=== PATIENT | female | born 1955 | race Caucasian/White ===

== ENCOUNTER 2018-05-29 16:26 | Emergency (ER) | payer MEDICARE, OTHER ==
--- NOTE | 2018-05-29 17:58 | ED Physician Documentation ---
PD HPI ABD PAIN - Stated complaint Stated Complaint: ABD PX - Chief complaint Chief Complaint: General - History obtained from History obtained from: Patient - History of Present Illness Timing - onset: Yesterday Timing - duration: Days (2) Timing - details: Gradual onset, Still present, Waxing and waning Quality: Cramping, Aching, Pain Location: All over / everywhere Radiation: No: Chest, Lower back Improved by: No: Eating Worsened by: Eating, Palpation. No: Moving Associated symptoms: Nausea, Diarrhea (loose stools for the past 2-3 days), Dizzy, Loss of appetite. No: Fever, Vomiting, Constipation, Melena, Hematochezia, Chest pain, Near syncope / syncope Similar symptoms before: Has not had sx before Recently seen: Clinic (She had had increased doses of her psychiatric medicines from her psychiatrist. She was to increase her citalopram I believe it was from 40-60 mg 3 weeks ago but there is been difficulty with the pharmacy dispensing i t and says she just increase that a week ago. She also increased her bupropion from 300-450 mg a week ago as well. She has felt otherwise okay until a couple of days ago when she has had the nausea, lightheadedness, abdominal cramps, muscle cramps and intermittent tingling in arms and legs. She called her psychiatrist who referred her to the ER for further evaluation. Concern was for the serotonin effect of both medicines.) Review of Systems Constitutional: reports: Myalgias, Fatigue. denies: Fever, Chills Nose: denies: Rhinorrhea / runny nose, Congestion Throat: denies: Sore throat Cardiac: denies: Chest pain / pressure, Palpitations Respiratory: denies: Dyspnea, Cough GI: reports: Nausea, Diarrhea (relatively loose BMs for her, with typical constipation related to chronic pain meds.). denies: Abdominal Pain, Vomiting, Constipation, Hematemesis, Bloody / black stool : denies: Dysuria, Frequency Musculoskeletal: reports: Back pain (chronic). denies: Neck pain Neurologic: reports: Generalized weakness, Confused. denies: Focal weakness, Numbness, Near syncope, Altered mental status Psychiatric: reports: Depressed. denies: Suicidal Immunocompromised: denies: Immunocompromised PD PAST MEDICAL HISTORY - Past Medical History Cardiovascular: None, Hypertension Respiratory: None Psych: Depression, Anxiety - Past Surgical History Past Surgical History: Yes - Present Medications Home Medications: Ambulatory Orders Medication Instructions Recorded Confirmed Docusate Sodium 100 mg PO TID PRN 12/10/15 12/10/15 Eletriptan HBr [Relpax] 40 mg PO Q2HR PRN 12/10/15 12/10/15 Estradiol [Estrace] 1 mg [id number] BIDWM 12/10/15 12/10/15 Gabapentin 600 mg PO TID 12/10/15 12/10/15 HYDROmorphone [Dilaudid] 4 mg PO BID PRN 12/10/15 12/10/15 Levothyroxine [Synthroid] 88 mcg PO DAILY 12/10/15 12/10/15 Metoprolol Tartrate 12.5 mg PO DAILY PM 12/10/15 12/10/15 Morphine Sulfate [Ms Contin] 45 mg PO BID 12/10/15 12/10/15 Olopatadine HCl 1 drop EACHEYE BID 12/10/15 12/10/15 Omeprazole 40 mg PO DAILY 12/10/15 12/10/15 Hyoscyamine Sulfate [Symax-Sr] 1 tab PO BID PRN 12/11/15 12/11/15 Spironolactone 50 mg PO DAILY 12/11/15 12/11/15 raNITIdine HCl [Ranitidine HCl] 300 mg PO DAILY 12/11/15 12/11/15 Apixaban [Eliquis] 1 tab PO DAILY 05/29/18 05/29/18 Bumetanide [Bumex] 1 tab PO DAILY 05/29/18 05/29/18 Metoprolol Tartrate 25 mg PO DAILY 05/29/18 05/29/18 Ondansetron HCl [Zofran] 4 mg PO Q6H PRN #12 tablet 05/29/18 buPROPion [Wellbutrin Xl] 3 tab PO DAILY 05/29/18 05/29/18 - Allergies Allergies/Adverse Reactions: Allergies Allergy/AdvReac Type Severity Reaction Status Date / Time codeine Allergy Itching Verified 05/29/18 18:27 PD ED PE NORMAL - Vitals Vital signs reviewed: Yes - General General: Alert and oriented X 3, Well developed/nourished, Other (somewhat anxious. ) - HEENT HEENT: Atraumatic, PERRL (mild nystagmus noted. ), Pharynx benign - Neck Neck: Supple, no meningeal sign, No adenopathy, No JVD - Cardiac Cardiac: RRR, No murmur - Respiratory Respiratory: Clear bilaterally - Abdomen Abdomen: Soft, Non distended, Other (tender generally without guarding nor percussion tenderness. ). No: Normal bowel sounds (increased diffusely) - Female Female : Deferred - Rectal Rectal: Deferred - Derm Derm: Normal color, Warm and dry - Extremities Extremities: No deformity, No tenderness to palpate, Normal ROM s pain - Neuro Neuro: Alert and oriented X 3, No motor deficit, Normal speech Results - Vitals Vitals: Vital Signs - 24 hr 05/29/18 16:36 Temperature 36.6 C Heart Rate 84 Respiratory 20 Rate Blood Pressure 127/63 O2 Saturation 98 Oxygen O2 Source Room air - Rads (name of study) abd CT Radiology: Prelim report reviewed (prior CCY with dilated CBD at 12 mm. No noted stones. ) PD MEDICAL DECISION MAKING - ED course Complexity details: reviewed results, re-evaluated patient (feeling much better with IV fluids and meds (Zofran and Lorazepam), to help with nausea and presumed side effect of the meds recently increased. ), considered differential (She has a little bit of nausea and some slight confusion. She is having muscle spasming. She is having occasional numbness in her extremities. She is having abdominal cramping. She has not noticed any fevers. Her symptoms might relate to increase serotonin since she did have the increased doses of 2 medications that could both cause that. However she does not have any vital sign lability nor fever and she is improved with IV fluids and some antiemetics. I did check blood tests and a CT scan to look for other causes of her stomach cramping. No obvious cause is found. She is improved here and so I think we can discharge her at this time and feels safe with that. She is to hold both medicines for 2- 3 days and then resume at the lower prior doses. She is to contact her psychiatrist the next day or 2 to verify this plan. She can return if other symptoms.), d/w patient - Sepsis Event Vital Signs: Vital Signs - 24 hr 05/29/18 16:36 Temperature 36.6 C Heart Rate 84 Respiratory 20 Rate Blood Pressure 127/63 O2 Saturation 98 Oxygen O2 Source Room air Departure - Departure Disposition: 01 Home, Self Care Clinical Impression: Abdominal cramping, Muscle cramps, Medication side effect, Serotonergic syndrome Condition: Stable Record reviewed to determine appropriate education?: Yes Follow-Up: Luther Briscoe MD [Primary Care Provider] - Prescriptions: Ondansetron HCl [Zofran] 4 mg PO Q6H PRN #12 tablet PRN Reason: Nausea / Vomiting Comments: Drink lots of fluids and stay well-hydrated. Hold the 2 medications that you recently increased for 4 days and then resume them at the prior lower dose (for example the bupropion at the 300 mg rather than the 450). Continue your other usual medications. Contact your psychiatrist in the next couple of days to let her know how you are doing. Ondansatron if needed for nausea. Tylenol if needed for pains. Discharge Date/Time: 05/29/18 22:00
[2018-05-29 18:01] LABS: BASOPHILS # (AUTO) 0.1 10^3/uL (0.0-0.1); BASOPHILS % (AUTO) 0.7 %; EOSINOPHILS # (AUTO) 0.3 10^3/uL (0.0-0.7); EOSINOPHILS % (AUTO) 2.7 %; HGB - HEMOGLOBIN 12.6 g/dL (12.0-16.0); LYMPHOCYTES # (AUTO) 2.1 10^3/uL (1.5-3.5); LYMPHOCYTES % (AUTO) 20.1 %; MEAN CORPUSCULAR HEMOGLOBIN 28.4 pg (27.0-31.0); MEAN CORPUSCULAR HGB CONC 34.4 g/dL (32.0-36.0); MEAN CORPUSCULAR VOLUME 82.7 fL (81.0-99.0); MONOCYTES # (AUTO) 0.8 10^3/uL (0.0-1.0); MONOCYTES % (AUTO) 7.7 %; NEUTROPHILS # (AUTO) 7.1 10^3/uL (1.5-6.6); NEUTROPHILS % (AUTO) 68.8 %; PLT - PLATELET COUNT 268 10^3/uL (130-450); RED BLOOD COUNT 4.44 10^6/uL (4.20-5.40); RED CELL DISTRIBUTION WIDTH 15.1 % (12.0-15.0); WHITE BLOOD COUNT 10.3 x10^3/uL (4.8-10.8)
[2018-05-29 18:14] LABS: ALBUMIN/GLOBULIN RATIO 1.1 (1.0-2.2); BILIRUBIN,TOTAL 0.6 mg/dL (0.2-1.0); CALCIUM 8.4 mg/dL (8.5-10.3); CREATININE 1.1 mg/dL (0.4-1.0); TOTAL PROTEIN 7.8 g/dL (6.7-8.2)
[2018-05-29] MEDS ORDERED: SODIUM CHLORIDE 0.9% 1,000 ML IV ONE (18:23)
[2018-05-29] MEDS ORDERED: ONDANSETRON 4 MG/2 ML VIAL IVP STA (18:26)
[2018-05-29] MEDS ORDERED: LORazepam 2 MG/ML VIAL IVP STA (18:27)
[2018-05-29] MEDS ORDERED: IOPAMIDOL-300 100 ML VIAL ONE (18:32)
[2018-05-29 18:43] LABS: MAGNESIUM 2.1 mg/dL (1.7-2.8)
[2018-05-29 18:59] LABS: MUDS CUTOFF CONCENTRATIONS CUTOFF CONC BELOW:
[2018-05-29 19:01] LABS: BILIRUBIN,URINE NEGATIVE (NEGATIVE); GLUCOSE, URINE (UA) NEGATIVE (NEGATIVE); KETONES,URINE (UA) NEGATIVE (NEGATIVE); LEUKOCYTE ESTERASE, URINE NEGATIVE (NEGATIVE); NITRITE,URINE NEGATIVE (NEGATIVE); OCCULT BLOOD,URINE NEGATIVE (NEGATIVE); PROTEIN,URINE NEGATIVE (NEGATIVE); UROBILINOGEN,URINE 0.2 (NORMAL) E.U./dL (NORMAL)
[2018-05-29 19:03] LABS: CLARITY,URINE CLEAR (CLEAR)
[2018-05-29 19:11] LABS: AMPHETAMINE SCREEN,URINE NEGATIVE (NEGATIVE); BENZODIAZEPINES SCREEN, URINE NEGATIVE (NEGATIVE); COCAINE SCREEN URINE NEGATIVE (NEGATIVE); METHADONE SCREEN, URINE NEGATIVE (NEGATIVE); METHAMPHETAMINES SCREEN, URINE NEGATIVE (NEGATIVE); OPIATE SCREEN, URINE POSITIVE (NEGATIVE); OXYCODONE SCREEN, URINE NEGATIVE (NEGATIVE); PROPOXYPHENE SCREEN, URINE NEGATIVE (NEGATIVE); TRICYCLIC ANTIDEPRESSANT,URINE NEGATIVE (NEGATIVE)
[2018-05-29] MEDS ORDERED: IOPAMIDOL-300 100 ML VIAL IVP ONE (19:51)
--- NOTE | 2018-05-29 20:46 | CT Report ---
Reason: abd cramping and pain for few days Procedure Date: 05/29/2018 Accession Number: [id number] / [id number] Procedure: CT - Abdomen/Pelvis W/ CPT Code: FULL RESULT: EXAM: CT ABDOMEN AND PELVIS EXAM DATE: 05/29/2018 07:50 PM. CLINICAL HISTORY: Abdomen cramping and pain for few days. COMPARISONS: None. TECHNIQUE: Routine helical CT imaging was performed through the abdomen and pelvis. IV contrast: 100 cc of Isovue-300. Enteric contrast: No. Reconstructions: Coronal and sagittal. In accordance with CT protocol optimization, one or more of the following dose reduction techniques were utilized for this exam: automated exposure control, adjustment of mA and/or KV based on patient size, or use of iterative reconstructive technique. FINDINGS: Lung Bases: Unremarkable. Liver: Mild pneumobilia, otherwise unremarkable. Gallbladder/Bile Ducts: Cholecystectomy. Abnormal common bile duct diameter of 12 mm. Spleen: Normal. Pancreas: Normal. Adrenal Glands: Normal. Kidneys: Normal. No masses or hydronephrosis. Peritoneal Cavity/Bowel: Normal. No free fluid, free air or adenopathy. No masses or acute inflammatory process. Nonvisualized appendix. Pelvic Organs: Hysterectomy. Unremarkable bladder. Vasculature: No aneurysms or other significant abnormality. Bones: Mild S-shaped scoliosis. Chronic appearing compression fracture at L1. Degenerative disk disease at L2-L3 and L3-L4. Other: None. IMPRESSION: 1. Cholecystectomy with abnormal common bile duct diameter of 12 mm and mild pneumobilia. 2. Hysterectomy. 3. Mild S-shaped scoliosis with chronic appearing L1 compression fracture and degenerative disk disease at L2-L3 and L3-L4. RADIA
[2018-05-29] MEDS ORDERED: ONDANSETRON ODT 4 MG Prepack 2 TL PRN (21:47)
[2018-05-29 21:54] VITALS: BP 102/55
== END 2018-05-29 22:00 | disposition home or self-care (01) ==
LOC: ED 16:26
DX: R10.9 Unspecified abdominal pain (principal); R25.2 Cramp and spasm; T43.225A Adverse effect of selective serotonin reuptake inhibitors, initial encounter; I10 Essential (primary) hypertension
CPT/HCPCS: 36415; 74177; 80053; 81003; 82550; 83690; 83735; 85025; 96361; 96374; 99283; 99284; J2060; Q9967; 80306; 81001; 87086

== ENCOUNTER 2018-06-13 21:49 | Inpatient (IN) | payer MEDICARE, OTHER ==
[2018-06-13] MEDS ORDERED: SODIUM CHLORIDE 0.9% 1,000 ML IV ONE (22:03)
[2018-06-13] MEDS ORDERED: ONDANSETRON 4 MG/2 ML VIAL IVP STA (22:03)
--- NOTE | 2018-06-13 22:08 | ED Physician Documentation ---
History of Present Illness - Stated complaint Stated Complaint: N/D - Chief complaint Chief Complaint: Abd Pain - Additonal information Additional information: 62-year-old female presents the emergency department with increasing episodes of vomiting, diarrhea and lower abdominal pain which have progressively worsened over the past several days. The patient reports being unable to keep down any liquids or food since the symptoms started. The patient's had no relief with [id number] Imodium. The patient reports ongoing lower abdominal discomfort. No blood in the vomit or stools. No recent antibiotic usage or travel. No specific triggering factors. No relieving factors. Symptoms are described as severe Review of Systems Constitutional: reports: Fever, Chills, Fatigue Eyes: denies: Discharge Ears: denies: Ear pain Nose: denies: Congestion Throat: denies: Dental pain / toothache Cardiac: denies: Chest pain / pressure Respiratory: denies: Cough GI: reports: Abdominal Pain, Nausea, Vomiting, Diarrhea : denies: Dysuria Skin: denies: Rash Musculoskeletal: denies: Joint pain Neurologic: denies: Generalized weakness Immunocompromised: denies: Chemotherapy PD PAST MEDICAL HISTORY - Past Medical History Cardiovascular: None, Hypertension Respiratory: None Neuro: Migraines Endocrine/Autoimmune: HyPOthyroidism GI: GERD, 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 : None HEENT: None Psych: Depression, Anxiety Musculoskeletal: Chronic back pain, Other Derm: Herpes zoster - Past Surgical History Past Surgical History: Yes General: Cholecystectomy, Other Ortho: Arthroscopic surgery, Spine surgery, Other /INDUSTRIAL MAINTENANCE TECHNICIAN: section, Hysterectomy, Oophrectomy HEENT: Cataracts, Other - Present Medications Home Medications: Ambulatory Orders Medication Instructions Recorded Confirmed Docusate Sodium 100 mg PO TID PRN 12/10/15 12/10/15 Eletriptan HBr [Relpax] 40 mg PO Q2HR PRN 12/10/15 12/10/15 Estradiol [Estrace] 1 mg [id number] BIDWM 12/10/15 12/10/15 Gabapentin 600 mg PO TID 12/10/15 12/10/15 HYDROmorphone [Dilaudid] 4 mg PO BID PRN 12/10/15 12/10/15 Levothyroxine [Synthroid] 88 mcg PO DAILY 12/10/15 12/10/15 Metoprolol Tartrate 12.5 mg PO DAILY PM 12/10/15 12/10/15 Morphine Sulfate [Ms Contin] 45 mg PO BID 12/10/15 12/10/15 Olopatadine HCl 1 drop EACHEYE BID 12/10/15 12/10/15 Omeprazole 40 mg PO DAILY 12/10/15 12/10/15 Hyoscyamine Sulfate [Symax-Sr] 1 tab PO BID PRN 12/11/15 12/11/15 Spironolactone 50 mg PO DAILY 12/11/15 12/11/15 raNITIdine HCl [Ranitidine HCl] 300 mg PO DAILY 12/11/15 12/11/15 Apixaban [Eliquis] 1 tab PO DAILY 05/29/18 05/29/18 Bumetanide [Bumex] 1 tab PO DAILY 05/29/18 05/29/18 Metoprolol Tartrate 25 mg PO DAILY 05/29/18 05/29/18 Ondansetron HCl [Zofran] 4 mg PO Q6H PRN #12 tablet 05/29/18 buPROPion [Wellbutrin Xl] 3 tab PO DAILY 05/29/18 05/29/18 - Allergies Allergies/Adverse Reactions: Allergies Allergy/AdvReac Type Severity Reaction Status Date / Time codeine Allergy Itching Verified 05/29/18 18:27 - Social History Does the pt smoke?: No Smoking Status: Never smoker Does the pt drink ETOH?: No Does the pt have substance abuse?: No - Immunizations Immunizations are current?: Yes - POLST Patient has POLST: No Results - Vitals Vitals: Vital Signs - 24 hr 06/13/18 21:54 Temperature 37.4 C Heart Rate 88 Respiratory 18 Rate Blood Pressure 121/98 H O2 Saturation 94 Oxygen O2 Source Room air - Labs Labs: Laboratory Tests 06/13/18 06/13/18 22:10 22:10 WBC 14.8 H RBC 5.32 Hgb 15.0 Hct 44.1 MCV 82.9 MCH 28.1 MCHC 34.0 RDW 14.9 Plt Count 293 MPV 8.4 Neut # (Auto) 12.9 H Lymph # (Auto) 0.7 L [place] # (Auto) 1.2 H Eos # (Auto) 0.0 Baso # (Auto) 0.0 Absolute Nucleated RBC 0.01 Nucleated RBC % 0.1 Sodium 128 L Potassium 2.9 L Chloride 87 L Carbon Dioxide 23 Anion Gap 18.0 H BUN 27 H Creatinine 1.9 H Estimated GFR (MDRD) 27 L Glucose 158 H Calcium 9.2 Total Bilirubin 1.1 H AST 32 ALT 26 Alkaline Phosphatase 50 Total Protein 8.8 H Albumin 4.6 Globulin 4.2 Albumin/Globulin Ratio 1.1 Lipase 25 - Rads (name of study) CT ABD/PELVIS Radiology: Final report received (1. No urinary tract stones or obstruction. 2. Fluid in the colon which can be seen with a diarrheal illness. 3. Post cholecystectomy and hysterectomy.4. Fatty liver. ) PD MEDICAL DECISION MAKING - ED course ED course: The patient has multiple acute secondary issues secondary to the severe diarrhea and vomiting. The patient has hyponatremia, hypokalemia and acute renal injury. The patient is unable to tolerate fluids and will require admission for ongoing management of her severe dehydration and metabolic abnormalities. The findings and plan were discussed the patient who understands and agrees to the plan. The case was discussed with the hospitalist Dr. Alatorre who accepts the patient onto his service Departure - Departure Disposition: ED Place in Observation Clinical Impression: Hyponatremia, Hypokalemia Abdominal pain Qualifiers: Abdominal location: lower abdomen, unspecified Qualified Code(s): R10.30 - Lower abdominal pain, unspecified Acute renal failure Qualifiers: Acute renal failure type: unspecified Qualified Code(s): N17.9 - Acute kidney failure, unspecified Condition: Good Discharge Date/Time: 06/14/18 01:45
[2018-06-13 22:21] LABS: BASOPHILS % (AUTO) 0.3 %; LYMPHOCYTES # (AUTO) 0.7 10^3/uL (1.5-3.5); LYMPHOCYTES % (AUTO) 4.6 %; MEAN CORPUSCULAR HEMOGLOBIN 28.1 pg (27.0-31.0); MEAN CORPUSCULAR VOLUME 82.9 fL (81.0-99.0); MEAN PLATELET VOLUME 8.4 fL (7.9-10.8); MONOCYTES # (AUTO) 1.2 10^3/uL (0.0-1.0); MONOCYTES % (AUTO) 7.9 %; NEUTROPHILS # (AUTO) 12.9 10^3/uL (1.5-6.6); NEUTROPHILS % (AUTO) 87.2 %; PLT - PLATELET COUNT 293 10^3/uL (130-450); RED BLOOD COUNT 5.32 10^6/uL (4.20-5.40); RED CELL DISTRIBUTION WIDTH 14.9 % (12.0-15.0); WHITE BLOOD COUNT 14.8 x10^3/uL (4.8-10.8)
[2018-06-13] MEDS ORDERED: MORPHINE 2 MG/ML CARPUJECT IVP STA (22:22)
[2018-06-13 22:35] LABS: ALBUMIN 4.6 g/dL (3.2-5.5); ALBUMIN/GLOBULIN RATIO 1.1 (1.0-2.2); BILIRUBIN,TOTAL 1.1 mg/dL (0.2-1.0); CALCIUM 9.2 mg/dL (8.5-10.3); CREATININE 1.9 mg/dL (0.4-1.0); TOTAL PROTEIN 8.8 g/dL (6.7-8.2)
--- NOTE | 2018-06-13 23:10 | CT Report ---
Reason: abdominal pain Procedure Date: 06/13/2018 Accession Number: [id number] / [id number] Procedure: CT - Abdomen/Pelvis W/O CPT Code: FULL RESULT: EXAM: CT ABDOMEN AND PELVIS (CT KUB) EXAM DATE: 06/13/2018 10:58 PM. CLINICAL HISTORY: Abdominal pain. COMPARISONS: ABDOMEN/PELVIS W/ 05/29/2018 7:39 PM. TECHNIQUE: Routine axial helical CT imaging was performed through the abdomen and pelvis without IV contrast. No IV contrast due to reported renal dysfunction. Reconstructions: Coronal and sagittal. In accordance with CT protocol optimization, one or more of the following dose reduction techniques were utilized for this exam: automated exposure control, adjustment of mA and/or KV based on patient size, or use of iterative reconstructive technique. FINDINGS: Lung Bases: Unremarkable. Right Kidney/Ureter: No stones, hydronephrosis, or hydroureter. No perinephric fat stranding. Left Kidney/Ureter: No stones, hydronephrosis, or hydroureter. No perinephric fat stranding. Other Solid Organs: Noncontrast images of the solid organs are grossly unremarkable with exception of fatty liver. Gallbladder/Bile Ducts: Unremarkable post cholecystectomy. Peritoneal Cavity: No free fluid, free air or pedro adenopathy. Bowel is grossly unremarkable with note of fluid in the colon. Pelvic Organs: Post hysterectomy with no adnexal masses seen. The bladder appears within normal limits. Vasculature: Unremarkable. Other: Stable mild scoliosis and old L1 compression fracture.. IMPRESSION: 1. No urinary tract stones or obstruction. 2. Fluid in the colon which can be seen with a diarrheal illness. 3. Post cholecystectomy and hysterectomy. 4. Fatty liver. RADIA
[2018-06-13] MEDS ORDERED: POTASSIUM CHLOR 20 MEQ/100 ML 20 MEQ/100 ML BAG IV ONE (23:35)
[2018-06-13] MEDS ORDERED: MAGNESIUM SULFATE 2 GRAM 2 GM/50 ML BAG IV ONE (23:35)
[2018-06-14] MEDS ORDERED: Eletriptan Hbr [Relpax] 40 MG PO PRN (00:03)
[2018-06-14] MEDS ORDERED: MORPHINE 2 MG/ML CARPUJECT IVP PRN (00:05)
[2018-06-14] MEDS ORDERED: PROMETHAZINE 25 MG/1 ML VIAL IM PRN (00:05)
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
[2018-06-14] MEDS ORDERED: HYDROmorphone 1 MG/ML CARPUJECT IVP STA (01:18)
[2018-06-14] MEDS ORDERED: ONDANSETRON 4 MG/2 ML VIAL IVP STA (01:29)
[2018-06-14] MEDS ORDERED: POTASSIUM CHLORIDE 20 MEQ TABLET PO ONE ×2 (02:29→08:45)
[2018-06-14] MEDS: METOPROLOL TARTRATE 25 MG TABLET PO SCH ×3 (02:29→21:22)
[2018-06-14] MEDS: NS W/20 MEQ KCL 1,000 ML IV SCH ×2 (02:31→16:01)
[2018-06-14] MEDS: SODIUM CHLORIDE FLUSH 0.9% 10 ML SYRINGE IVP SCH ×3 (02:31→16:21)
[2018-06-14] MEDS: metroNIDAZOLE 500 MG/100 ML 500 MG/100 ML BAG IV SCH ×3 (02:44→18:11)
[2018-06-14 03:33] LABS: GLUCOSE, URINE (UA) NEGATIVE (NEGATIVE); KETONES,URINE (UA) 15 mg/dL (NEGATIVE); LEUKOCYTE ESTERASE, URINE NEGATIVE (NEGATIVE); NITRITE,URINE NEGATIVE (NEGATIVE); OCCULT BLOOD,URINE NEGATIVE (NEGATIVE); PROTEIN,URINE NEGATIVE (NEGATIVE); UROBILINOGEN,URINE 0.2 (NORMAL) E.U./dL (NORMAL)
[2018-06-14 03:37] LABS: BILIRUBIN,URINE NEGATIVE (NEGATIVE); CLARITY,URINE CLEAR (CLEAR); ICTOTEST,URINE NEGATIVE
[2018-06-14] MEDS: HYDROmorphone 2 MG/ML VIAL IVP PRN ×6 (03:53→21:56)
[2018-06-14] MEDS: CIPROFLOXACIN 400 MG/200 ML 200 ML IV SCH ×2 (03:53→13:56)
[2018-06-14 06:53] LABS: BASOPHILS % (AUTO) 0.3 %; EOSINOPHILS % (AUTO) 0.1 %; HGB - HEMOGLOBIN 13.3 g/dL (12.0-16.0); LYMPHOCYTES # (AUTO) 0.7 10^3/uL (1.5-3.5); LYMPHOCYTES % (AUTO) 6.8 %; MEAN CORPUSCULAR HEMOGLOBIN 28.9 pg (27.0-31.0); MEAN CORPUSCULAR HGB CONC 35.3 g/dL (32.0-36.0); MEAN CORPUSCULAR VOLUME 81.8 fL (81.0-99.0); MEAN PLATELET VOLUME 8.3 fL (7.9-10.8); NEUTROPHILS # (AUTO) 9.2 10^3/uL (1.5-6.6); NEUTROPHILS % (AUTO) 83.8 %; PLT - PLATELET COUNT 233 10^3/uL (130-450); RED CELL DISTRIBUTION WIDTH 14.8 % (12.0-15.0)
[2018-06-14 07:03] LABS: ALBUMIN 3.8 g/dL (3.2-5.5); BILIRUBIN,TOTAL 0.9 mg/dL (0.2-1.0); CALCIUM 8.3 mg/dL (8.5-10.3); CREATININE 1.4 mg/dL (0.4-1.0); MAGNESIUM 2.7 mg/dL (1.7-2.8); PHOSPHORUS 3.6 mg/dL (2.5-4.6); TOTAL PROTEIN 7.8 g/dL (6.7-8.2)
[2018-06-14] MEDS: GABAPENTIN 300 MG CAPSULE PO SCH ×3 (07:14→21:20)
[2018-06-14] MEDS: LEVOTHYROXINE 88 MCG TABLET PO SCH (07:15)
[2018-06-14] MEDS: PROCHLORPERAZINE 10 MG/2 ML VIAL IVP PRN ×3 (07:19→21:56)
[2018-06-14] MEDS: SODIUM CHLORIDE FLUSH 0.9% 10 ML SYRINGE IVP PRN ×5 (07:20→21:56)
[2018-06-14 07:21] LABS: HB2 TOTAL 14.3 g/dL; HEMOGLOBIN A1C 0.59 g/dL; HEMOGLOBIN A1C % 5.9 % (4.6-6.2)
[2018-06-14] MEDS: POLYETHYLENE GLYCOL 3350 17 GM PACKET PO SCH (08:02)
[2018-06-14] MEDS ORDERED: OLOPATADINE HCL EACHEYE SCH (09:00)
[2018-06-14] MEDS ORDERED: buPROPion XL 150 MG TABLET PO SCH (09:00)
[2018-06-14] MEDS ORDERED: RANITIDINE HCL 300 MG PO SCH (09:00)
[2018-06-14] MEDS: MORPHINE ER 15 MG TABLET PO SCH ×2 (10:25→21:19)
[2018-06-14] MEDS: FAMOTIDINE 20 MG TABLET PO SCH (10:25)
[2018-06-14] MEDS: APIXABAN 5 MG TABLET PO SCH ×2 (10:25→21:19)
[2018-06-14] MEDS: ONDANSETRON 4 MG/2 ML VIAL IVP PRN ×3 (11:12→23:58)
[2018-06-14] MEDS ORDERED: OLOPATADINE EACHEYE PRN (11:37)
--- NOTE | 2018-06-14 12:13 | ADVANCE CARE PLANNING NOTE ---
Advance Care Planning - Date/Time Date: 06/14/18 Time: 12:12 - Code Status Code Status: Attempt Resuscitation
[2018-06-14] MEDS: predniSONE 20 MG TABLET PO SCH (14:22)
[2018-06-14] MEDS: HYOSCYAMINE SL 0.125 MG TABLET SL PRN ×2 (14:23→21:35)
[2018-06-14] MEDS: SIMETHICONE CHEW 80 MG TABLET PO PRN ×2 (14:23→21:33)
--- NOTE | 2018-06-14 15:53 | PROVIDER PROGRESS NOTE ---
Subjective - Prog Note Date Prog Note Date: 06/14/18 - Subjective Pt reports feeling: Improved Subjective: pt report her abdominal is better but still has water-like diarrhea. She denies fever, chill, cheat pain, SOB. Current Medications - Current Medications Current Medications: Active Medications Acetaminophen (Tylenol) 650 mg PO Q4HR PRN PRN Reason: Pain 1 to 4 Apixaban (Eliquis) 5 mg PO BID [facility] Last Admin: 06/14/18 10:25 Dose: 5 mg Dicyclomine HCl (Bentyl) 10 mg PO QID PRN PRN Reason: Cramp Famotidine (Pepcid) 40 mg PO DAILY [facility] Last Admin: 06/14/18 10:25 Dose: 40 mg Gabapentin (Neurontin) 600 mg PO TID [facility] Last Admin: 06/14/18 14:25 Dose: 600 mg Hydromorphone HCl (Dilaudid (Vial)) 2 mg IVP Q2H PRN PRN Reason: PAIN Last Admin: 06/14/18 18:11 Dose: 2 mg Hyoscyamine (Levsin) 0.125 mg SL BID PRN PRN Reason: Abdominal Pain Last Admin: 06/14/18 14:23 Dose: 0.125 mg Potassium Chloride/Sodium Chloride (Normal Saline 0.9% W/20 Meq Kcl) 1,000 mls @ 100 mls/hr IV .Q10H [facility] Last Admin: 06/14/18 16:01 Dose: 100 mls/hr Ciprofloxacin (Cipro 400 Mg/200 Ml) 200 mls @ 200 mls/hr IV Q12H [facility] Last Infusion: 06/14/18 14:56 Dose: Infused Metronidazole (Flagyl 500 Mg/100 Ml) 500 mg in 100 mls @ 100 mls/hr IV Q8H [facility] Last Admin: 06/14/18 18:11 Dose: 200 mls/hr Levothyroxine Sodium (Synthroid) 88 mcg PO QDAC [facility] Last Admin: 06/14/18 07:15 Dose: 88 mcg Metoprolol Tartrate (Lopressor) 12.5 mg PO QPM [facility] Last Admin: 06/14/18 02:29 Dose: 12.5 mg Metoprolol Tartrate (Lopressor) 25 mg PO DAILY [facility] Last Admin: 06/14/18 10:26 Dose: 25 mg Morphine Sulfate () 45 mg PO BID [facility] Last Admin: 06/14/18 10:25 Dose: 45 mg Ondansetron HCl (Zofran Inj) 4 mg IVP Q6HR PRN PRN Reason: Nausea / Vomiting Last Admin: 06/14/18 18:11 Dose: 4 mg Eletriptan Hbr [ (Relpax] 40 Mg) 1 each PO Q2HR PRN PRN Reason: HEADACHE Olopatadine (Ophthalmic) 1 each EACHEYE BID PRN PRN Reason: ALLERGIC CONJUNCTIVITIS Polyethylene Glycol (Miralax) 17 gm PO DAILY [facility] Last Admin: 06/14/18 08:02 Dose: Not Given Prednisone (Deltasone) 30 mg PO DAILYWM [facility] Last Admin: 06/14/18 14:22 Dose: 30 mg Prochlorperazine Edisylate (Compazine Inj) 10 mg IVP Q6HR PRN PRN Reason: Nausea / Vomiting Last Admin: 06/14/18 14:24 Dose: 10 mg Promethazine HCl (Phenergan Inj) 25 mg IM Q6HR PRN PRN Reason: Nausea / Vomiting Simethicone (Mylicon) 80 mg PO 0900,1300,1800,2100 PRN PRN Reason: Cramp Last Admin: 06/14/18 14:23 Dose: 80 mg Sodium Chloride (Normal Saline Flush 0.9%) 10 ml IVP PRN PRN PRN Reason: NEEDED PER PROVIDER ORDERS Last Admin: 06/14/18 18:11 Dose: 30 ml Sodium Chloride (Normal Saline Flush 0.9%) 10 ml IVP 0100,0900,1700 [facility] Last Admin: 06/14/18 16:21 Dose: Not Given Zolpidem Tartrate (Ambien) 5 mg PO QPM PRN PRN Reason: Insomnia Eletriptan HBr [Relpax] 40 mg PO Q2HR PRN 12/10/15 Estradiol [Estrace] 1 mg [id number] BIDWM 12/10/15 Gabapentin 600 mg PO TID 12/10/15 HYDROmorphone [Dilaudid] 4 mg PO TID PRN 12/10/15 Levothyroxine [Synthroid] 88 mcg PO QDAC 12/10/15 Metoprolol Tartrate 12.5 mg PO DAILY PM 12/10/15 Morphine Sulfate [Ms Contin] 45 mg PO BID 12/10/15 Olopatadine HCl 1 drop EACHEYE BID PRN 12/10/15 Omeprazole 40 mg PO DAILY 12/10/15 Spironolactone 25 mg PO BID 12/11/15 raNITIdine HCl [Ranitidine HCl] 300 mg PO DAILY 12/11/15 Apixaban [Eliquis] 5 mg PO BID 05/29/18 Bumetanide [Bumex] 1 mg PO DAILY 05/29/18 Metoprolol Tartrate 25 mg PO DAILY 05/29/18 Hyoscyamine [Levsin] 0.125 mg SL BID PRN 06/14/18 Polyethylene Glycol 3350 [Miralax] 17 gm PO DAILY PRN 06/14/18 tiZANidine [Zanaflex] 4 mg PO BID PRN 06/14/18 Objective - Vital Signs/Intake & Output Reviewed Vital Signs: Yes Vital Signs: Vital Signs x48h Temp Pulse Resp BP BP Pulse Ox 06/14/18 14:54 36.6 C 79 16 122/59 L 99 06/14/18 10:26 138/64 H 06/14/18 10:01 36.9 C 92 17 138/64 H 100 Intake & Output: Intake & Output 06/11/18 06/12/18 06/13/18 06/14/18 23:59 23:59 23:59 23:59 Intake Total 1750 Output Total 400 Balance 1350 - Objective General Appearance: positive: No acute distress, Alert. negative: Lethargic Eyes Bilateral: positive: Normal inspection, PERRL, No lid inflammation, Conjunctivae nml ENT: positive: ENT inspection nml, Pharynx nml, No signs of dehydration. negative: Purulent nasal drainage, Pharyngeal erythema, Oral lesions Neck: positive: Nml inspection, Thyroid nml, No JVD, Trachea midline. negative: Thyromegaly, Lymphadenopathy (R), Lymphadenopathy (L), Stiff neck, Swelling/bruising, Tracheal deviation Respiratory: positive: Chest non-tender, No respiratory distress, Breath sounds nml. negative: Wheezes, Rales, Rhonchi Cardiovascular: positive: Regular rate & rhythm, No murmur, No gallop. negative: Irregularly irregular, Extrasystoles, Tachycardia, Bradycardia, JVD present, Systolic murmur, Diastolic murmur Peripheral Pulses: 2+ Radial (R), 2+ Radial (L), 2+ Dorsalis pedis (R), 2+ Dorsalis pedis (L) Abdomen: positive: Non-tender, No organomegaly, No distention. negative: Tende rness, Guarding, Rebound Back: positive: Nml inspection. negative: CVA tenderness (R), CVA tenderness (L) Skin: positive: Color nml, No rash, Warm, Dry. negative: Cyanosis, Diaphoresis, Pallor Extremities: positive: Non-tender, Full ROM, Nml appearance. negative: Calf tenderness, Joint swelling, Jess's sign/cords Neurologic/Psychiatric: positive: Oriented x3, Motor nml, Sensation nml, Mood/affect nml. negative: Weakness, Sensory loss, Facial droop, Slurred/abnml speech, Depressed mood/affect - Lab Results Fish Bones: 06/14/18 06:43 06/14/18 06:43 Other Labs: Lab Results x24hrs 06/14/18 06/14/18 06/14/18 Range/Units 06:43 06:43 06:43 WBC (4.8-10.8) x10^3/uL RBC (4.20-5.40) 10^6/uL Hgb (12.0-16.0) g/dL Hct (37.0-47.0) % MCV (81.0-99.0) fL MCH (27.0-31.0) pg MCHC (32.0-36.0) g/dL RDW (12.0-15.0) % Plt Count (130-450) 10^3/uL MPV (7.9-10.8) fL Neut # (Auto) (1.5-6.6) 10^3/uL Lymph # (Auto) (1.5-3.5) 10^3/uL Appling # (Auto) (0.0-1.0) 10^3/uL Eos # (Auto) (0.0-0.7) 10^3/uL Baso # (Auto) (0.0-0.1) 10^3/uL Absolute Nucleated RBC x10^3/uL Nucleated RBC % /100WBC ESR 38 H (0-30) mm/Hr Sodium (135-145) mmol/L Potassium (3.5-5.0) mmol/L Chloride (101-111) mmol/L Carbon Dioxide (21-32) mmol/L Anion Gap (6-13) BUN (6-20) mg/dL Creatinine (0.4-1.0) mg/dL Estimated GFR (MDRD) (>89) Glucose (70-100) mg/dL Glycated Hemoglobin (4.6-6.2) % Estim Average Glucose (70-100) Lactic Acid (0.5-2.2) mmol/L Calcium (8.5-10.3) mg/dL Phosphorus (2.5-4.6) mg/dL Magnesium (1.7-2.8) mg/dL Total Bilirubin (0.2-1.0) mg/dL AST (10-42) IU/L ALT (10-60) IU/L Alkaline Phosphatase (42-121) IU/L C-Reactive Protein 16.8 H (0-1.0) mg/dL Total Protein (6.7-8.2) g/dL Albumin (3.2-5.5) g/dL Globulin (2.1-4.2) g/dL Albumin/Globulin Ratio (1.0-2.2) Lipase (22-51) U/L TSH 1.65 (0.34-5.60) uIU/mL Urine Color Urine Clarity (CLEAR) Urine pH (5.0-7.5) PH Ur Specific Throckmorton (1.002-1.030) Urine Protein (NEGATIVE) mg/dL Urine Glucose (UA) (NEGATIVE) mg/dL Urine Ketones (NEGATIVE) mg/dL Urine Occult Blood (NEGATIVE) Urine Nitrite (NEGATIVE) Urine Bilirubin (NEGATIVE) Urine Urobilinogen (NORMAL) E.U./dL Ur Leukocyte Esterase (NEGATIVE) Ur Microscopic Review Urine Culture Comments Stool Leukocytes, Qual (Negative) Influenza A (Rapid) (Negative) Influenza B (Rapid) (Negative) 06/14/18 06/14/18 06/14/18 Range/Units 06:43 06:43 06:43 WBC (4.8-10.8) x10^3/uL RBC (4.20-5.40) 10^6/uL Hgb (12.0-16.0) g/dL Hct (37.0-47.0) % MCV (81.0-99.0) fL MCH (27.0-31.0) pg MCHC (32.0-36.0) g/dL RDW (12.0-15.0) % Plt Count (130-450) 10^3/uL MPV (7.9-10.8) fL Neut # (Auto) (1.5-6.6) 10^3/uL Lymph # (Auto) (1.5-3.5) 10^3/uL Appling # (Auto) (0.0-1.0) 10^3/uL Eos # (Auto) (0.0-0.7) 10^3/uL Baso # (Auto) (0.0-0.1) 10^3/uL Absolute Nucleated RBC x10^3/uL Nucleated RBC % /100WBC ESR (0-30) mm/Hr Sodium 127 L (135-145) mmol/L Potassium 3.0 L (3.5-5.0) mmol/L Chloride 93 L (101-111) mmol/L Carbon Dioxide 22 (21-32) mmol/L Anion Gap 12.0 (6-13) BUN 24 H (6-20) mg/dL Creatinine 1.4 H (0.4-1.0) mg/dL Estimated GFR (MDRD) 38 L (>89) Glucose 160 H (70-100) mg/dL Glycated Hemoglobin 5.9 (4.6-6.2) % Estim Average Glucose 123 H (70-100) Lactic Acid 1.2 (0.5-2.2) mmol/L Calcium 8.3 L (8.5-10.3) mg/dL Phosphorus 3.6 (2.5-4.6) mg/dL Magnesium 2.7 (1.7-2.8) mg/dL Total Bilirubin 0.9 (0.2-1.0) mg/dL AST 32 (10-42) IU/L ALT 24 (10-60) IU/L Alkaline Phosphatase 44 (42-121) IU/L C-Reactive Protein (0-1.0) mg/dL Total Protein 7.8 (6.7-8.2) g/dL Albumin 3.8 (3.2-5.5) g/dL Globulin 4.0 (2.1-4.2) g/dL Albumin/Globulin Ratio 1.0 (1.0-2.2) Lipase (22-51) U/L TSH (0.34-5.60) uIU/mL Urine Color Urine Clarity (CLEAR) Urine pH (5.0-7.5) PH Ur Specific Th[place]morton (1.002-1.030) Urine Protein (NEGATIVE) mg/dL Urine Glucose (UA) (NEGATIVE) mg/dL Urine Ketones (NEGATIVE) mg/dL Urine Occult Blood (NEGATIVE) Urine Nitrite (NEGATIVE) Urine Bilirubin (NEGATIVE) Urine Urobilinogen (NORMAL) E.U./dL Ur Leukocyte Esterase (NEGATIVE) Ur Microscopic Review Urine Culture Comments Stool Leukocytes, Qual (Negative) Influenza A (Rapid) (Negative) Influenza B (Rapid) (Negative) 06/14/18 06/14/18 06/14/18 Range/Units 06:43 03:04 02:37 WBC 11.0 H (4.8-10.8) x10^3/uL RBC 4.60 (4.20-5.40) 10^6/uL Hgb 13.3 (12.0-16.0) g/dL Hct 37.6 (37.0-47.0) % MCV 81.8 (81.0-99.0) fL MCH 28.9 (27.0-31.0) pg MCHC 35.3 (32.0-36.0) g/dL RDW 14.8 (12.0-15.0) % Plt Count 233 (130-450) 10^3/uL MPV 8.3 (7.9-10.8) fL Neut # (Auto) 9.2 H (1.5-6.6) 10^3/uL Lymph # (Auto) 0.7 L (1.5-3.5) 10^3/uL Appling # (Auto) 1.0 (0.0-1.0) 10^3/uL Eos # (Auto) 0.0 (0.0-0.7) 10^3/uL Baso # (Auto) 0.0 (0.0-0.1) 10^3/uL Absolute Nucleated RBC 0.01 x10^3/uL Nucleated RBC % 0.1 /100WBC ESR (0-30) mm/Hr Sodium (135-145) mmol/L Potassium (3.5-5.0) mmol/L Chloride (101-111) mmol/L Carbon Dioxide (21-32) mmol/L Anion Gap (6-13) BUN (6-20) mg/dL Creatinine (0.4-1.0) mg/dL Estimated GFR (MDRD) (>89) Glucose (70-100) mg/dL Glycated Hemoglobin (4.6-6.2) % Estim Average Glucose (70-100) Lactic Acid (0.5-2.2) mmol/L Calcium (8.5-10.3) mg/dL Phosphorus (2.5-4.6) mg/dL Magnesium (1.7-2.8) mg/dL Total Bilirubin (0.2-1.0) mg/dL AST (10-42) IU/L ALT (10-60) IU/L Alkaline Phosphatase (42-121) IU/L C-Reactive Protein (0-1.0) mg/dL Total Protein (6.7-8.2) g/dL Albumin (3.2-5.5) g/dL Globulin (2.1-4.2) g/dL Albumin/Globulin Ratio (1.0-2.2) Lipase (22-51) U/L TSH (0.34-5.60) uIU/mL Urine Color DARK YELLOW Urine Clarity CLEAR (CLEAR) Urine pH 6.0 (5.0-7.5) PH Ur Specific Th[place]morton 1.025 (1.002-1.030) Urine Protein NEGATIVE (NEGATIVE) mg/dL Urine Glucose (UA) NEGATIVE (NEGATIVE) mg/dL Urine Ketones 15 H (NEGATIVE) mg/dL Urine Occult Blood NEGATIVE (NEGATIVE) Urine Nitrite NEGATIVE (NEGATIVE) Urine Bilirubin NEGATIVE (NEGATIVE) Urine Urobilinogen 0.2 (NORMAL) (NORMAL) E.U./dL Ur Leukocyte Esterase NEGATIVE (NEGATIVE) Ur Microscopic Review NOT INDICATED Urine Culture Comments NOT INDICATED Stool Leukocytes, Qual (Negative) Influenza A (Rapid) Negative (Negative) Influenza B (Rapid) Negative (Negative) 06/14/18 06/13/18 06/13/18 Range/Units 01:55 22:10 22:10 WBC 14.8 H (4.8-10.8) x10^3/uL RBC 5.32 (4.20-5.40) 10^6/uL Hgb 15.0 (12.0-16.0) g/dL Hct 44.1 (37.0-47.0) % MCV 82.9 (81.0-99.0) fL MCH 28.1 (27.0-31.0) pg MCHC 34.0 (32.0-36.0) g/dL RDW 14.9 (12.0-15.0) % Plt Count 293 (130-450) 10^3/uL MPV 8.4 (7.9-10.8) fL Neut # (Auto) 12.9 H (1.5-6.6) 10^3/uL Lymph # (Auto) 0.7 L (1.5-3.5) 10^3/uL Appling # (Auto) 1.2 H (0.0-1.0) 10^3/uL Eos # (Auto) 0.0 (0.0-0.7) 10^3/uL Baso # (Auto) 0.0 (0.0-0.1) 10^3/uL Absolute Nucleated RBC 0.01 x10^3/uL Nucleated RBC % 0.1 /100WBC ESR (0-30) mm/Hr Sodium 128 L (135-145) mmol/L Potassium 2.9 L (3.5-5.0) mmol/L Chloride 87 L (101-111) mmol/L Carbon Dioxide 23 (21-32) mmol/L Anion Gap 18.0 H (6-13) BUN 27 H (6-20) mg/dL Creatinine 1.9 H (0.4-1.0) mg/dL Estimated GFR (MDRD) 27 L (>89) Glucose 158 H (70-100) mg/dL Glycated Hemoglobin (4.6-6.2) % Estim Average Glucose (70-100) Lactic Acid (0.5-2.2) mmol/L Calcium 9.2 (8.5-10.3) mg/dL Phosphorus (2.5-4.6) mg/dL Magnesium (1.7-2.8) mg/dL Total Bilirubin 1.1 H (0.2-1.0) mg/dL AST 32 (10-42) IU/L ALT 26 (10-60) IU/L Alkaline Phosphatase 50 (42-121) IU/L C-Reactive Protein (0-1.0) mg/dL Total Protein 8.8 H (6.7-8.2) g/dL Albumin 4.6 (3.2-5.5) g/dL Globulin 4.2 (2.1-4.2) g/dL Albumin/Globulin Ratio 1.1 (1.0-2.2) Lipase 25 (22-51) U/L TSH (0.34-5.60) uIU/mL Urine Color Urine Clarity (CLEAR) Urine pH (5.0-7.5) PH Ur Specific Th[place]morton (1.002-1.030) Urine Protein (NEGATIVE) mg/dL Urine Glucose (UA) (NEGATIVE) mg/dL Urine Ketones (NEGATIVE) mg/dL Urine Occult Blood (NEGATIVE) Urine Nitrite (NEGATIVE) Urine Bilirubin (NEGATIVE) Urine Urobilinogen (NORMAL) E.U./dL Ur Leukocyte Esterase (NEGATIVE) Ur Microscopic Review Urine Culture Comments Stool Leukocytes, Qual POSITIVE (Negative) Influenza A (Rapid) (Negative) Influenza B (Rapid) (Negative) ABX Reporting Has patient been on IV antibiotics over the past 48 hours?: Yes Assessment/Plan - Problem List (1) Diarrhea Impression: (1) Diarrhea Conclusion/Plan: pt still had diarrhea but diarrhea times is significantly less. WBC is down, no fever today, abdominal pain is controlled. C.Dif is negative. but fecal leukocytes is positive indicate infection/inflammation. continue antibiotics continue IVF continue lab monitor electrolyts (2) MOLLY (acute kidney injury) Conclusion/Plan: improved, continue IVF, and lab monitor Avoid nephrotoxic agents (3) Hypokalemia replacement, continue lab monitor (4) Hyponatremia CONTINUE IVF of NS continue lab monitor (5) Chronic pain better control, continue pain control (6) Hyperglycemia stable, no insulin need at this time (7) Atrial fibrillation stable, continue home meds, and eliquis (8) Hypertension stable (9) Hypothyroidism TSH is normal, continue synthyroid Qualifiers: Diarrhea type: presumed infectious Qualified Code(s): R19.7 - Diarrhea, unspecified
[2018-06-14] MEDS: ACETAMINOPHEN 325 MG TABLET PO PRN (19:02)
[2018-06-15] MEDS: SODIUM CHLORIDE FLUSH 0.9% 10 ML SYRINGE IVP SCH ×5 (00:02→23:48)
[2018-06-15] MEDS: HYDROmorphone 2 MG/ML VIAL IVP PRN ×3 (02:23→16:05)
[2018-06-15] MEDS: NS W/20 MEQ KCL 1,000 ML IV SCH ×2 (02:24→16:01)
[2018-06-15] MEDS: CIPROFLOXACIN 400 MG/200 ML 200 ML IV SCH ×2 (02:43→13:46)
[2018-06-15] MEDS: metroNIDAZOLE 500 MG/100 ML 500 MG/100 ML BAG IV SCH ×3 (03:52→17:44)
[2018-06-15] MEDS ORDERED: SUMAtriptan 25 MG TABLET PO PRN (05:26)
[2018-06-15] MEDS: ACETAMINOPHEN 325 MG TABLET PO PRN (05:46)
[2018-06-15] MEDS: GABAPENTIN 300 MG CAPSULE PO SCH ×3 (05:52→21:42)
[2018-06-15] MEDS: ONDANSETRON 4 MG/2 ML VIAL IVP PRN (05:52)
[2018-06-15 06:39] LABS: BASOPHILS % (AUTO) 0.2 %; HGB - HEMOGLOBIN 12.8 g/dL (12.0-16.0); LYMPHOCYTES # (AUTO) 0.6 10^3/uL (1.5-3.5); MEAN CORPUSCULAR HEMOGLOBIN 27.9 pg (27.0-31.0); MEAN CORPUSCULAR HGB CONC 33.5 g/dL (32.0-36.0); MEAN CORPUSCULAR VOLUME 83.4 fL (81.0-99.0); NEUTROPHILS # (AUTO) 7.7 10^3/uL (1.5-6.6); NEUTROPHILS % (AUTO) 82.8 %; PLT - PLATELET COUNT 225 10^3/uL (130-450); RED CELL DISTRIBUTION WIDTH 14.9 % (12.0-15.0); WHITE BLOOD COUNT 9.3 x10^3/uL (4.8-10.8)
[2018-06-15 07:02] LABS: ALBUMIN 3.3 g/dL (3.2-5.5); ALBUMIN/GLOBULIN RATIO 0.9 (1.0-2.2); BILIRUBIN,TOTAL 0.7 mg/dL (0.2-1.0); CALCIUM 8.2 mg/dL (8.5-10.3); MAGNESIUM 2.3 mg/dL (1.7-2.8); TOTAL PROTEIN 6.9 g/dL (6.7-8.2)
[2018-06-15] MEDS: POLYETHYLENE GLYCOL 3350 17 GM PACKET PO SCH (07:35)
[2018-06-15] MEDS: MORPHINE ER 15 MG TABLET PO SCH ×2 (07:52→21:42)
[2018-06-15] MEDS: APIXABAN 5 MG TABLET PO SCH ×2 (07:52→21:42)
[2018-06-15] MEDS: LEVOTHYROXINE 88 MCG TABLET PO SCH (07:52)
[2018-06-15] MEDS: METOPROLOL TARTRATE 25 MG TABLET PO SCH (07:53)
[2018-06-15] MEDS: FAMOTIDINE 20 MG TABLET PO SCH (07:53)
[2018-06-15] MEDS: predniSONE 20 MG TABLET PO SCH (07:53)
[2018-06-15] MEDS ORDERED: POTASSIUM CHLORIDE 20 MEQ TABLET PO ONE (08:09)
[2018-06-15] MEDS: METOCLOPRAMIDE 10 MG/2 ML VIAL IVP PRN (09:17)
[2018-06-15] MEDS: SODIUM CHLORIDE FLUSH 0.9% 10 ML SYRINGE IVP PRN (09:17)
[2018-06-15] MEDS: DICYCLOMINE 10 MG CAPSULE PO PRN (09:17)
[2018-06-15] MEDS: NEUTRA-PHOS 250 MG TABLET PO SCH ×2 (11:54→16:01)
[2018-06-15] MEDS: ZINC OXIDE 20% OINT 28.35 GM TUBE TOP PRN ×2 (13:46→18:10)
[2018-06-15] MEDS: SACCHAROMYCES BOULARDII 250 MG CAPSULE PO SCH (16:01)
[2018-06-15] MEDS ORDERED: MESALAMINE 400 MG CAPSULE PO SCH (17:00)
--- NOTE | 2018-06-15 17:14 | PROVIDER PROGRESS NOTE ---
Subjective - Prog Note Date Prog Note Date: 06/15/18 - Subjective Pt reports feeling: No change Subjective: pt report no change, she still has lots of diarrhea, but denies fever, chill, CP, SOB. I called ID, for consulting. Dr. Garcia state we treated correctly with Flagyl and Cipro IV, and probiotics. She would like we have the test of salmonella and norovirus test. we will send stool test for these. Current Medications - Current Medications Current Medications: Active Medications Acetaminophen (Tylenol) 650 mg PO Q4HR PRN PRN Reason: Pain 1 to 4 Last Admin: 06/15/18 05:46 Dose: 650 mg Apixaban (Eliquis) 5 mg PO BID [facility] Last Admin: 06/15/18 07:52 Dose: 5 mg Dicyclomine HCl (Bentyl) 10 mg PO QID PRN PRN Reason: Cramp Last Admin: 06/15/18 09:17 Dose: 10 mg Famotidine (Pepcid) 40 mg PO DAILY [facility] Last Admin: 06/15/18 07:53 Dose: 40 mg Gabapentin (Neurontin) 600 mg PO TID [facility] Last Admin: 06/15/18 13:45 Dose: 600 mg Hydromorphone HCl (Dilaudid (Vial)) 2 mg IVP Q2H PRN PRN Reason: PAIN Last Admin: 06/15/18 16:05 Dose: 2 mg Hyoscyamine (Levsin) 0.125 mg SL BID PRN PRN Reason: Abdominal Pain Last Admin: 06/14/18 21:35 Dose: 0.125 mg Potassium Chloride/Sodium Chloride (Normal Saline 0.9% W/20 Meq Kcl) 1,000 mls @ 100 mls/hr IV .Q10H [facility] [place] Last Admin: 06/15/18 16:01 Dose: 100 mls/hr Ciprofloxacin (Cipro 400 Mg/200 Ml) 200 mls @ 200 mls/hr IV Q12H [facility] Last Infusion: 06/15/18 15:04 Dose: Infused Metronidazole (Flagyl 500 Mg/100 Ml) 500 mg in 100 mls @ 100 mls/hr IV Q8H [facility] Last Infusion: 06/15/18 11:01 Dose: Infused Levothyroxine Sodium (Synthroid) 88 mcg PO QDAC [facility] [place] Last Admin: 06/15/18 07:52 Dose: 88 mcg Mesalamine (Delzicol) 400 mg PO QID [facility] [place] Last Admin: 06/15/18 16:01 Dose: 400 mg Metoclopramide HCl (Reglan Inj) 5 mg IVP Q6HR PRN PRN Reason: Nausea / Vomiting Last Admin: 06/15/18 09:17 Dose: 5 mg Metoprolol Tartrate (Lopressor) 12.5 mg PO QPM [facility] [place] Last Admin: 06/14/18 21:22 Dose: 12.5 mg Metoprolol Tartrate (Lopressor) 25 mg PO DAILY [facility] [place] Last Admin: 06/15/18 07:53 Dose: 25 mg Morphine Sulfate () 45 mg PO BID [facility] [place] Last Admin: 06/15/18 07:52 Dose: 45 mg Multi-Ingredient Ointment (Zinc Oxide) 1 applic TOP PRN PRN PRN Reason: Skin Care Last Admin: 06/15/18 13:46 Dose: 1 applic Ondansetron HCl (Zofran Inj) 4 mg IVP Q6HR PRN PRN Reason: Nausea / Vomiting Last Admin: 06/15/18 05:52 Dose: 4 mg Eletriptan Hbr [ (Relpax] 40 Mg) 1 each PO Q2HR PRN PRN Reason: HEADACHE Olopatadine (Ophthalmic) 1 each EACHEYE BID PRN PRN Reason: ALLERGIC CONJUNCTIVITIS Polyethylene Glycol (Miralax) 17 gm PO DAILY [facility] [place] Last Admin: 06/15/18 07:35 Dose: Not Given Prednisone (Deltasone) 30 mg PO DAILYWM [facility] [place] Last Admin: 06/15/18 07:53 Dose: 30 mg Promethazine HCl (Phenergan Inj) 25 mg IM Q6HR PRN PRN Reason: Nausea / Vomiting Saccharomyces Boulardii (Florastor) 250 mg PO BIDWM [facility] [place] Last Admin: 06/15/18 16:01 Dose: 250 mg Simethicone (Mylicon) 80 mg PO 0900,1300,1800,2100 PRN PRN Reason: Cramp Last Admin: 06/14/18 21:33 Dose: 80 mg Sodium Chloride (Normal Saline Flush 0.9%) 10 ml IVP PRN PRN PRN Reason: NEEDED PER PROVIDER ORDERS Last Admin: 06/15/18 09:17 Dose: 10 ml Sodium Chloride (Normal Saline Flush 0.9%) 10 ml IVP 0100,0900,1700 [facility] [place] Last Admin: 06/15/18 15:44 Dose: Not Given Sodium Phosphate (K-Phos Neutral) 250 mg PO TIDWM [facility] [place] Last Admin: 06/15/18 16:01 Dose: 250 mg Zolpidem Tartrate (Ambien) 5 mg PO QPM PRN PRN Reason: Insomnia Eletriptan HBr [Relpax] 40 mg PO Q2HR PRN 12/10/15 Estradiol [Estrace] 1 mg [id number] BIDWM 12/10/15 Gabapentin 600 mg PO TID 12/10/15 HYDROmorphone [Dilaudid] 4 mg PO TID PRN 12/10/15 Levothyroxine [Synthroid] 88 mcg PO QDAC 12/10/15 Metoprolol Tartrate 12.5 mg PO DAILY PM 12/10/15 Morphine Sulfate [Ms Contin] 45 mg PO BID 12/10/15 Olopatadine HCl 1 drop EACHEYE BID PRN 12/10/15 Omeprazole 40 mg PO DAILY 12/10/15 Spironolactone 25 mg PO BID 12/11/15 raNITIdine HCl [Ranitidine HCl] 300 mg PO DAILY 12/11/15 Apixaban [Eliquis] 5 mg PO BID 05/29/18 Bumetanide [Bumex] 1 mg PO DAILY 05/29/18 Metoprolol Tartrate 25 mg PO DAILY 05/29/18 Hyoscyamine [Levsin] 0.125 mg SL BID PRN 06/14/18 Polyethylene Glycol 3350 [Miralax] 17 gm PO DAILY PRN 06/14/18 tiZANidine [Zanaflex] 4 mg PO BID PRN 06/14/18 Objective - Vital Signs/Intake & Output Reviewed Vital Signs: Yes Vital Signs: Vital Signs x48h Temp Pulse Resp BP Pulse Ox 06/15/18 15:47 36.5 C 58 L 16 115/65 99 Intake & Output: Intake & Output 06/12/18 06/13/18 06/14/18 06/15/18 23:59 23:59 23:59 23:59 Intake Total 3100 3375.000 Output Total 900 300 Balance 2200 3075.000 - Objective General Appearance: positive: No acute distress, Alert. negative: Lethargic Eyes Bilateral: positive: Normal inspection, PERRL, No lid inflammation, Conjunctivae nml ENT: positive: ENT inspection nml, Pharynx nml, No signs of dehydration. negative: Purulent nasal drainage, Pharyngeal erythema, Oral lesions Neck: positive: Nml inspection, Thyroid nml, No JVD, Trachea midline. negative: Thyromegaly, Lymphadenopathy (R), Lymphadenopathy (L), Stiff neck, Swelling/bruising, Tracheal deviation Respiratory: positive: Chest non-tender, No respiratory distress, Breath sounds nml. negative: Wheezes, Rales, Rhonchi Cardiovascular: positive: Regular rate & rhythm, No murmur, No gallop. negative: Irregularly irregular, Extrasystoles, Tachycardia, Bradycardia, JVD present, Systolic murmur, Diastolic murmur Peripheral Pulses: 2+ Radial (R), 2+ Radial (L), 2+ Dorsalis pedis (R), 2+ Dorsalis pedis (L) Abdomen: positive: Non-tender, No organomegaly, No distention. negative: Tenderness, Guarding, Rebound Back: positive: Nml inspection. negative: CVA tenderness (R), CVA tenderness (L) Skin: positive: Color nml, No rash, Warm, Dry. negative: Cyanosis, Diaphoresis, Pallor Extremities: positive: Non-tender, Full ROM, Nml appearance. negative: Calf tenderness, Joint swelling, Jess's sign/cords Neurologic/Psychiatric: positive: Oriented x3, Motor nml, Sensation nml, Mood/affect nml. negative: Weakness, Sensory loss, Facial droop, Slurred/abnml speech, Depressed mood/affect - Lab Results Fish Bones: 06/15/18 06:25 06/15/18 06:25 Other Labs: Lab Results x24hrs 06/15/18 06/15/18 Range/Units 06:25 06:25 WBC 9.3 (4.8-10.8) x10^3/uL RBC 4.60 (4.20-5.40) 10^6/uL Hgb 12.8 (12.0-16.0) g/dL Hct 38.3 (37.0-47.0) % MCV 83.4 (81.0-99.0) fL MCH 27.9 (27.0-31.0) pg MCHC 33.5 (32.0-36.0) g/dL RDW 14.9 (12.0-15.0) % Plt Count 225 (130-450) 10^3/uL MPV 8.0 (7.9-10.8) fL Neut # (Auto) 7.7 H (1.5-6.6) 10^3/uL Lymph # (Auto) 0.6 L (1.5-3.5) 10^3/uL Taylor # (Auto) 1.0 (0.0-1.0) 10^3/uL Eos # (Auto) 0.0 (0.0-0.7) 10^3/uL Baso # (Auto) 0.0 (0.0-0.1) 10^3/uL Absolute Nucleated RBC 0.01 x10^3/uL Nucleated RBC % 0.1 /100WBC Sodium 134 L (135-145) mmol/L Potassium 3.4 L (3.5-5.0) mmol/L Chloride 102 (101-111) mmol/L Carbon Dioxide 23 (21-32) mmol/L Anion Gap 9.0 (6-13) BUN 16 (6-20) mg/dL Creatinine 1.0 (0.4-1.0) mg/dL Estimated GFR (MDRD) 56 L (>89) Glucose 128 H (70-100) mg/dL Calcium 8.2 L (8.5-10.3) mg/dL Phosphorus 2.0 L (2.5-4.6) mg/dL Magnesium 2.3 (1.7-2.8) mg/dL Total Bilirubin 0.7 (0.2-1.0) mg/dL AST 30 (10-42) IU/L ALT 21 (10-60) IU/L Alkaline Phosphatase 36 L (42-121) IU/L Total Protein 6.9 (6.7-8.2) g/dL Albumin 3.3 (3.2-5.5) g/dL Globulin 3.6 (2.1-4.2) g/dL Albumin/Globulin Ratio 0.9 L (1.0-2.2) ABX Reporting Has patient been on IV antibiotics over the past 48 hours?: Yes Assessment/Plan - Problem List (1) Diarrhea Impression: Conclusion/Plan: 06/15, called ID, will followup recommendation, continue antibiotics, Flagy, and Cipro, add Probiotics check salmnolla and Norovirus start lower dosage of Mesalamine continue IVF, lab monitor pt still had diarrhea but diarrhea times is significantly less. WBC is down, no fever today, abdominal pain is controlled. C.Dif is negative. but fecal leukocytes is positive indicate infection/inflammation. continue antibiotics continue IVF continue lab monitor electrolyts (2) MOLLY (acute kidney injury) Conclusion/Plan: improved, continue IVF, and lab monitor Avoid nephrotoxic agents (3) Hypokalemia replacement, continue lab monitor (4) Hyponatremia CONTINUE IVF of NS continue lab monitor (5) Chronic pain better control, continue pain control (6) Hyperglycemia stable, no insulin need at this time (7) Atrial fibrillation stable, continue home meds, and eliquis (8) Hypertension stable (9) Hypothyroidism TSH is normal, continue synthyroid Qualifiers: Diarrhea type: presumed infectious Qualified Code(s): R19.7 - Diarrhea, unspecified
[2018-06-15] MEDS ORDERED: diltiaZEM 30 MG TABLET PO SCH (18:00)
[2018-06-15] MEDS ORDERED: METOPROLOL 5 MG/5 ML VIAL IVP SCH (19:00)
[2018-06-15] MEDS: SIMETHICONE CHEW 80 MG TABLET PO PRN (19:02)
[2018-06-15] MEDS ORDERED: METOPROLOL SUCCINATE 25 MG TABLET PO SCH (20:00)
[2018-06-15] MEDS: LORazepam 0.5 MG TABLET PO PRN (21:42)
[2018-06-15] MEDS: MESALAMINE 400 MG CAPSULE PO SCH (21:42)
[2018-06-15] MEDS: METOPROLOL SUCCINATE 25 MG TABLET PO SCH (21:43)
[2018-06-15] MEDS: ZOLPIDEM 5 MG TABLET PO PRN (23:48)
[2018-06-16] MEDS: NS W/20 MEQ KCL 1,000 ML IV SCH ×3 (00:48→16:26)
[2018-06-16] MEDS: LOPERAMIDE 2 MG CAPSULE PO PRN ×3 (01:12→21:06)
[2018-06-16] MEDS: metroNIDAZOLE 500 MG/100 ML 500 MG/100 ML BAG IV SCH ×3 (01:13→18:24)
[2018-06-16] MEDS: CIPROFLOXACIN 400 MG/200 ML 200 ML IV SCH ×2 (02:36→14:15)
[2018-06-16] MEDS: GABAPENTIN 300 MG CAPSULE PO SCH ×3 (06:40→21:07)
[2018-06-16] MEDS: LEVOTHYROXINE 88 MCG TABLET PO SCH (06:40)
[2018-06-16 06:45] LABS: BASOPHILS % (AUTO) 0.2 %; EOSINOPHILS % (AUTO) 0.2 %; HGB - HEMOGLOBIN 11.5 g/dL (12.0-16.0); LYMPHOCYTES # (AUTO) 0.9 10^3/uL (1.5-3.5); LYMPHOCYTES % (AUTO) 11.1 %; MEAN CORPUSCULAR HEMOGLOBIN 28.1 pg (27.0-31.0); MEAN CORPUSCULAR HGB CONC 33.5 g/dL (32.0-36.0); MEAN CORPUSCULAR VOLUME 83.8 fL (81.0-99.0); MEAN PLATELET VOLUME 8.5 fL (7.9-10.8); MONOCYTES # (AUTO) 1.1 10^3/uL (0.0-1.0); MONOCYTES % (AUTO) 12.6 %; NEUTROPHILS # (AUTO) 6.3 10^3/uL (1.5-6.6); NEUTROPHILS % (AUTO) 75.9 %; PLT - PLATELET COUNT 221 10^3/uL (130-450); RED BLOOD COUNT 4.08 10^6/uL (4.20-5.40); RED CELL DISTRIBUTION WIDTH 15.4 % (12.0-15.0); WHITE BLOOD COUNT 8.4 x10^3/uL (4.8-10.8)
[2018-06-16 06:57] LABS: BILIRUBIN,TOTAL 0.5 mg/dL (0.2-1.0); CREATININE 0.9 mg/dL (0.4-1.0); TOTAL PROTEIN 6.1 g/dL (6.7-8.2)
[2018-06-16] MEDS ORDERED: POTASSIUM CHLORIDE 20 MEQ TABLET PO ONE (07:39)
[2018-06-16] MEDS: ONDANSETRON 4 MG/2 ML VIAL IVP PRN (09:13)
[2018-06-16] MEDS: SODIUM CHLORIDE FLUSH 0.9% 10 ML SYRINGE IVP SCH ×2 (09:14→15:54)
[2018-06-16] MEDS: FAMOTIDINE 20 MG TABLET PO SCH (09:22)
[2018-06-16] MEDS: APIXABAN 5 MG TABLET PO SCH ×2 (09:22→21:07)
[2018-06-16] MEDS: SACCHAROMYCES BOULARDII 250 MG CAPSULE PO SCH ×2 (09:22→16:25)
[2018-06-16] MEDS: NEUTRA-PHOS 250 MG TABLET PO SCH ×3 (09:22→16:25)
[2018-06-16] MEDS: MESALAMINE 400 MG CAPSULE PO SCH ×4 (09:23→21:07)
[2018-06-16] MEDS: METOPROLOL SUCCINATE 25 MG TABLET PO SCH ×2 (09:23→21:08)
[2018-06-16] MEDS: POLYETHYLENE GLYCOL 3350 17 GM PACKET PO SCH (09:24)
[2018-06-16] MEDS: MORPHINE ER 15 MG TABLET PO SCH ×2 (09:24→21:07)
[2018-06-16] MEDS: LORazepam 0.5 MG TABLET PO PRN (10:01)
[2018-06-16] MEDS ORDERED: POTASSIUM CHLORIDE 10 MEQ CAPSULE PO ONE (11:00)
[2018-06-16] MEDS: METOCLOPRAMIDE 10 MG/2 ML VIAL IVP PRN (14:15)
[2018-06-16] MEDS: SODIUM CHLORIDE FLUSH 0.9% 10 ML SYRINGE IVP PRN (14:18)
[2018-06-16] MEDS ORDERED: IOPAMIDOL-300 100 ML VIAL ONE (14:50)
[2018-06-16] MEDS ORDERED: IOPAMIDOL-300 50 ML VIAL ONE (14:50)
[2018-06-16] MEDS: ACETAMINOPHEN 325 MG TABLET PO PRN (14:51)
--- NOTE | 2018-06-16 15:56 | PROVIDER PROGRESS NOTE ---
Subjective - Prog Note Date Prog Note Date: 06/16/18 - Subjective Pt reports feeling: No change Subjective: pt report her abdominal pain is good control, she feel much better than but she still continue to have diarrhea. melba and Ruben test is pending. Will call ID after test come back. pt also complain of fresh blood in the stool, will test Occult, CT of abdomen to r/o acute ischemic, and H&H Current Medications - Current Medications Current Medications: Active Medications Acetaminophen (Tylenol) 650 mg PO Q4HR PRN PRN Reason: Pain 1 to 4 Last Admin: 06/16/18 14:51 Dose: 650 mg Apixaban (Eliquis) 5 mg PO BID [facility] Last Admin: 06/16/18 09:22 Dose: 5 mg Dicyclomine HCl (Bentyl) 10 mg PO QID PRN PRN Reason: Cramp Last Admin: 06/15/18 09:17 Dose: 10 mg Famotidine (Pepcid) 40 mg PO DAILY [facility] Last Admin: 06/16/18 09:22 Dose: 40 mg Gabapentin (Neurontin) 600 mg PO TID [facility] Last Admin: 06/16/18 14:15 Dose: 600 mg Hydromorphone HCl (Dilaudid (Vial)) 2 mg IVP Q2H PRN PRN Reason: PAIN Last Admin: 06/15/18 16:05 Dose: 2 mg Hyoscyamine (Levsin) 0.125 mg SL BID PRN PRN Reason: Abdominal Pain Last Admin: 06/14/18 21:35 Dose: 0.125 mg Potassium Chloride/Sodium Chloride (Normal Saline 0.9% W/20 Meq Kcl) 1,000 mls @ 100 mls/hr IV .Q10H [facility] Last Infusion: 06/16/18 15:12 Dose: 100 mls/hr Ciprofloxacin (Cipro 400 Mg/200 Ml) 200 mls @ 200 mls/hr IV Q12H [facility] Last Infusion: 06/16/18 15:15 Dose: Infused Metronidazole (Flagyl 500 Mg/100 Ml) 500 mg in 100 mls @ 100 mls/hr IV Q8H [facility] Last Infusion: 06/16/18 11:25 Dose: Infused Levothyroxine Sodium (Synthroid) 88 mcg PO QDAC [facility] Last Admin: 06/16/18 06:40 Dose: 88 mcg Loperamide HCl (Imodium) 2 mg PO QID PRN PRN Reason: Diarrhea Last Admin: 06/16/18 09:11 Dose: 2 mg Lorazepam (Ativan) 0.5 mg PO Q6H PRN PRN Reason: Anxiety Last Admin: 06/16/18 10:01 Dose: 0.5 mg Mesalamine (Delzicol) 400 mg PO QID [facility] Last Admin: 06/16/18 12:19 Dose: 400 mg Metoclopramide HCl (Reglan Inj) 5 mg IVP Q6HR PRN PRN Reason: Nausea / Vomiting Last Admin: 06/16/18 14:15 Dose: 5 mg Metoprolol Succinate (Toprol Xl) 25 mg PO DAILY [facility] Last Admin: 06/16/18 09:23 Dose: 25 mg Metoprolol Succinate (Toprol Xl) 12.5 mg PO HS [facility] Last Admin: 06/15/18 21:43 Dose: 12.5 mg Morphine Sulfate () 45 mg PO BID [facility] Last Admin: 06/16/18 09:24 Dose: 45 mg Multi-Ingredient Ointment (Zinc Oxide) 1 applic TOP PRN PRN PRN Reason: Skin Care Last Admin: 06/15/18 18:10 Dose: 1 applic Ondansetron HCl (Zofran Inj) 4 mg IVP Q6HR PRN PRN Reason: Nausea / Vomiting Last Admin: 06/16/18 09:13 Dose: 4 mg Eletriptan Hbr [ (Relpax] 40 Mg) 1 each PO Q2HR PRN PRN Reason: HEADACHE Olopatadine (Ophthalmic) 1 each EACHEYE BID PRN PRN Reason: ALLERGIC CONJUNCTIVITIS Polyethylene Glycol (Miralax) 17 gm PO DAILY [facility] Last Admin: 06/16/18 09:24 Dose: Not Given Promethazine HCl (Phenergan Inj) 25 mg IM Q6HR PRN PRN Reason: Nausea / Vomiting Saccharomyces Boulardii (Florastor) 250 mg PO BIDWM [facility] Last Admin: 06/16/18 09:22 Dose: 250 mg Simethicone (Mylicon) 80 mg PO 0900,1300,1800,2100 PRN PRN Reason: Cramp Last Admin: 06/15/18 19:02 Dose: 80 mg Sodium Chloride (Normal Saline Flush 0.9%) 10 ml IVP PRN PRN PRN Reason: NEEDED PER PROVIDER ORDERS Last Admin: 06/16/18 14:18 Dose: 10 ml Sodium Chloride (Normal Saline Flush 0.9%) 10 ml IVP 0100,0900,1700 [facility] Last Admin: 06/16/18 15:54 Dose: Not Given Sodium Phosphate (K-Phos Neutral) 250 mg PO TIDWM [facility] Last Admin: 06/16/18 12:19 Dose: 250 mg Zolpidem Tartrate (Ambien) 5 mg PO QPM PRN PRN Reason: Insomnia Last Admin: 06/15/18 23:48 Dose: 5 mg Eletriptan HBr [Relpax] 40 mg PO Q2HR PRN 12/10/15 Estradiol [Estrace] 1 mg [id number] BIDWM 12/10/15 Gabapentin 600 mg PO TID 12/10/15 HYDROmorphone [Dilaudid] 4 mg PO TID PRN 12/10/15 Levothyroxine [Synthroid] 88 mcg PO QDAC 12/10/15 Morphine Sulfate [Ms Contin] 45 mg PO BID 12/10/15 Olopatadine HCl 1 drop EACHEYE BID PRN 12/10/15 Omeprazole 40 mg PO DAILY 12/10/15 Spironolactone 25 mg PO BID 12/11/15 raNITIdine HCl [Ranitidine HCl] 300 mg PO DAILY 12/11/15 Apixaban [Eliquis] 5 mg PO BID 05/29/18 Bumetanide [Bumex] 1 mg PO DAILY 05/29/18 Hyoscyamine [Levsin] 0.125 mg SL BID PRN 06/14/18 Polyethylene Glycol 3350 [Miralax] 17 gm PO DAILY PRN 06/14/18 tiZANidine [Zanaflex] 4 mg PO BID PRN 06/14/18 Metoprolol Succinate 25 mg PO DAILY 06/16/18 Metoprolol Succinate [Toprol Xl] 12.5 mg PO QPM 06/16/18 Objective - Vital Signs/Intake & Output Reviewed Vital Signs: Yes Vital Signs: Vital Signs x48h Temp Pulse Resp BP Pulse Ox 06/16/18 15:45 36.6 C 61 16 128/63 100 06/16/18 13:15 36.4 C L 62 12 115/51 L 99 06/16/18 11:04 36.4 C L 77 20 136/70 H 99 06/16/18 07:55 36.4 C L 75 18 130/67 100 Intake & Output: Intake & Output 06/13/18 06/14/18 06/15/18 06/16/18 23:59 23:59 23:59 23:59 Intake Total 3100 3845.000 2175.000 Output Total 900 350 Balance 2200 3495.000 2175.000 - Objective General Appearance: positive: No acute distress, Alert. negative: Lethargic Eyes Bilateral: positive: Normal inspection, PERRL, No lid inflammation, Conjunctivae nml ENT: positive: ENT inspection nml, Pharynx nml, No signs of dehydration. negative: Purulent nasal drainage, Pharyngeal erythema, Oral lesions Neck: positive: Nml inspection, Thyroid nml, No JVD, Trachea midline. negative: Thyromegaly, Lymphadenopathy (R), Lymphadenopathy (L), Stiff neck, Swelling/bruising, Tracheal deviation Respiratory: positive: Chest non-tender, No respiratory distress, Breath sounds nml. negative: Wheezes, Rales, Rhonchi Cardiovascular: positive: Regular rate & rhythm, No murmur, No gallop. negativ e: Irregularly irregular, Extrasystoles, Tachycardia, Bradycardia, JVD present, Systolic murmur, Diastolic murmur Peripheral Pulses: 2+ Radial (R), 2+ Radial (L), 2+ Dorsalis pedis (R), 2+ Dorsalis pedis (L) Abdomen: positive: Non-tender, No organomegaly, No distention. negative: Tenderness, Guarding, Rebound Back: positive: Nml inspection. negative: CVA tenderness (R), CVA tenderness (L) Skin: positive: Color nml, No rash, Warm, Dry. negative: Cyanosis, Diaphoresis, Pallor Extremities: positive: Non-tender, Full ROM, Nml appearance. negative: Calf tenderness, Joint swelling, Jess's sign/cords Neurologic/Psychiatric: positive: Oriented x3, Motor nml, Sensation nml, Mood/affect nml. negative: Weakness, Sensory loss, Facial droop, Slurred/abnml speech, Depressed mood/affect - Lab Results Fish Bones: 06/16/18 06:00 06/16/18 06:00 Other Labs: Lab Results x24hrs 06/16/18 06/16/18 06/14/18 Range/Units 06:00 06:00 01:55 WBC 8.4 (4.8-10.8) x10^3/uL RBC 4.08 L (4.20-5.40) 10^6/uL Hgb 11.5 L (12.0-16.0) g/dL Hct 34.2 L (37.0-47.0) % MCV 83.8 (81.0-99.0) fL MCH 28.1 (27.0-31.0) pg MCHC 33.5 (32.0-36.0) g/dL RDW 15.4 H (12.0-15.0) % Plt Count 221 (130-450) 10^3/uL MPV 8.5 (7.9-10.8) fL Neut # (Auto) 6.3 (1.5-6.6) 10^3/uL Lymph # (Auto) 0.9 L (1.5-3.5) 10^3/uL [place] # (Auto) 1.1 H (0.0-1.0) 10^3/uL Eos # (Auto) 0.0 (0.0-0.7) 10^3/uL Baso # (Auto) 0.0 (0.0-0.1) 10^3/uL Absolute Nucleated RBC 0.00 x10^3/uL Nucleated RBC % 0.0 /100WBC Sodium 135 (135-145) mmol/L Potassium 3.1 L (3.5-5.0) mmol/L Chloride 106 (101-111) mmol/L Carbon Dioxide 22 (21-32) mmol/L Anion Gap 7.0 (6-13) BUN 12 (6-20) mg/dL Creatinine 0.9 (0.4-1.0) mg/dL Estimated GFR (MDRD) 63 L (>89) Glucose 100 (70-100) mg/dL Calcium 8.0 L (8.5-10.3) mg/dL Total Bilirubin 0.5 (0.2-1.0) mg/dL AST 27 (10-42) IU/L ALT 21 (10-60) IU/L Alkaline Phosphatase 29 L (42-121) IU/L Total Protein 6.1 L (6.7-8.2) g/dL Albumin 3.0 L (3.2-5.5) g/dL Globulin 3.1 (2.1-4.2) g/dL Albumin/Globulin Ratio 1.0 (1.0-2.2) Ova & Parasites SEE NOTE ABX Reporting Has patient been on IV antibiotics over the past 48 hours?: Yes Assessment/Plan - Problem List (1) Diarrhea Impression: Conclusion/Plan: 06/16 pt still has diarrhea, will call [facility] or GI again when has Salmonella and Norovirus test continue antibiotics continue IVF 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 WBC is down, no fever today, abdominal pain is controlled. C.Dif is negative. but fecal leukocytes is positive indicate infection/inflammation. continue antibiotics continue IVF continue lab monitor electrolyts (2) MOLLY (acute kidney injury) Conclusion/Plan: improved, continue IVF, and lab monitor Avoid nephrotoxic agents (3) Hypokalemia replacement, continue lab monitor (4) Hyponatremia CONTINUE IVF of NS continue lab monitor (5) Chronic pain better control, continue pain control (6) Hyperglycemia stable, no insulin need at this time (7) Atrial fibrillation stable, continue home meds, and eliquis (8) Hypertension stable (9) Hypothyroidism TSH is normal, continue synthyroid (10) GI bleed pt report she fresh rectal bleeding, it may come from hemorrhoids but we do not have GI surgeon we can consult now H&H, occult test, CT of abdomen to r/o ischemic since pt continue to have diarrhea, abdominal pain, rectal bleeding Qualifiers: Diarrhea type: presumed infectious Qualified Code(s): R19.7 - Diarrhea, unspecified
[2018-06-16 16:09] LABS: HGB - HEMOGLOBIN 11.4 g/dL (12.0-16.0)
[2018-06-16] MEDS ORDERED: IOPAMIDOL-300 50 ML VIAL PO ONE (16:16)
[2018-06-16] MEDS ORDERED: IOPAMIDOL-300 100 ML VIAL IVP ONE (16:16)
[2018-06-16] MEDS: predniSONE 20 MG TABLET PO SCH (16:25)
--- NOTE | 2018-06-16 16:35 | CT Report ---
Reason: abdominal pain, blood stool Procedure Date: 06/16/2018 Accession Number: [id number] / [id number] Procedure: CT - Abdomen/Pelvis W/ CPT Code: FULL RESULT: EXAM: CT ABDOMEN AND PELVIS WITH CONTRAST. EXAM DATE: 06/16/2018 04:14 PM. CLINICAL HISTORY: Abdominal pain, blood stool. COMPARISONS: 06/13/2018. 05/29/2018. TECHNIQUE: Routine helical CT imaging was performed through the abdomen and pelvis. IV contrast: ISOVUE 300 100 mL. Enteric contrast: Positive. Reconstructions: Coronal and sagittal. In accordance with CT protocol optimization, one or more of the following dose reduction techniques were utilized for this exam: automated exposure control, adjustment of mA and/or KV based on patient size, or use of iterative reconstructive technique. FINDINGS: Lung Bases: Lung bases are clear. Included portions of the heart are unremarkable except for coronary calcified plaque. Very small hiatal hernia. Liver: No hepatic lesions. Mild intrahepatic ductal dilatation, unchanged. Patent portal vein. Gallbladder/Bile Ducts: Status post cholecystectomy. Prominent common bile duct, stable. No filling defect. Spleen: Normal. Pancreas: Normal. Adrenal Glands: Normal. Kidneys: Kidneys enhance symmetrically. Mild renal parenchymal volume loss. No hydronephrosis or nephrolithiasis. No CT evidence of pyelonephritis. No ureteral dilatation or ureteral calculi. Peritoneal Cavity/Bowel: Stomach is mild to moderately distended and contains contrast. The majority of small bowel has contrast. No small bowel wall thickening or evidence for obstruction. Terminal ileum is unremarkable. Moderate distention of the colon with fluid similar to slightly more prominent. No pericolonic inflammatory changes. Some portions of the distal colon are slightly decompressed limiting detail. There may be very mild colonic wall thickening distally involving the mid distal descending and sigmoid colon. No intra-abdominal fluid collections. Appendix not visualized. Cecum is in the right upper pelvis and midline. No pericecal inflammatory changes. Pelvic Organs: Urinary bladder is mildly distended and unremarkable. Uterus is absent. No pelvic free fluid. No pelvic adenopathy. Vasculature: Vascular calcifications. No aneurysm. Mesenteric vasculature is patent. Bones: Degenerative changes of the lower thoracic and lumbar spine. Chronic anterior wedging of L1 is again seen. Lumbar facet arthropathy. Other: None. IMPRESSION: 1. Mild to moderate fluid distention of the colon with slight progression compared to 06/13/2018 with very mild thickening suggested of the mid distal descending colon and sigmoid colon which may be inflammatory/infectious in etiology or ischemic. No significant pericolonic inflammatory changes. No free air. 2. No bowel obstruction. No small bowel wall thickening. 3. Status post cholecystectomy. RADIA
[2018-06-16] MEDS: ZOLPIDEM 5 MG TABLET PO PRN (21:06)
[2018-06-16] MEDS: HYOSCYAMINE SL 0.125 MG TABLET SL PRN (21:09)
[2018-06-17] MEDS: ACETAMINOPHEN 325 MG TABLET PO PRN (00:34)
[2018-06-17] MEDS: METOCLOPRAMIDE 10 MG/2 ML VIAL IVP PRN ×3 (00:35→19:21)
[2018-06-17] MEDS: SODIUM CHLORIDE FLUSH 0.9% 10 ML SYRINGE IVP PRN ×4 (00:45→14:57)
[2018-06-17] MEDS: SODIUM CHLORIDE FLUSH 0.9% 10 ML SYRINGE IVP SCH ×4 (01:15→23:52)
[2018-06-17] MEDS: CIPROFLOXACIN 400 MG/200 ML 200 ML IV SCH ×2 (02:12→14:50)
[2018-06-17] MEDS: NS W/20 MEQ KCL 1,000 ML IV SCH ×3 (02:35→23:51)
[2018-06-17] MEDS: tiZANidine 4 MG TABLET PO PRN (02:36)
[2018-06-17] MEDS: metroNIDAZOLE 500 MG/100 ML 500 MG/100 ML BAG IV SCH ×3 (03:23→18:28)
[2018-06-17 06:05] LABS: BASOPHILS % (AUTO) 0.2 %; HGB - HEMOGLOBIN 10.8 g/dL (12.0-16.0); LYMPHOCYTES # (AUTO) 0.9 10^3/uL (1.5-3.5); LYMPHOCYTES % (AUTO) 10.4 %; MEAN CORPUSCULAR HEMOGLOBIN 28.1 pg (27.0-31.0); MEAN CORPUSCULAR HGB CONC 33.9 g/dL (32.0-36.0); MEAN CORPUSCULAR VOLUME 82.7 fL (81.0-99.0); MEAN PLATELET VOLUME 8.4 fL (7.9-10.8); MONOCYTES # (AUTO) 0.5 10^3/uL (0.0-1.0); NEUTROPHILS # (AUTO) 7.2 10^3/uL (1.5-6.6); NEUTROPHILS % (AUTO) 83.4 %; PLT - PLATELET COUNT 230 10^3/uL (130-450); RED BLOOD COUNT 3.83 10^6/uL (4.20-5.40); RED CELL DISTRIBUTION WIDTH 15.7 % (12.0-15.0); WHITE BLOOD COUNT 8.6 x10^3/uL (4.8-10.8)
[2018-06-17] MEDS: LEVOTHYROXINE 88 MCG TABLET PO SCH (06:21)
[2018-06-17] MEDS: GABAPENTIN 300 MG CAPSULE PO SCH ×3 (06:21→21:30)
[2018-06-17 06:37] LABS: ALBUMIN 2.8 g/dL (3.2-5.5); BILIRUBIN,TOTAL 0.5 mg/dL (0.2-1.0); CALCIUM 7.9 mg/dL (8.5-10.3); CREATININE 0.9 mg/dL (0.4-1.0); TOTAL PROTEIN 5.6 g/dL (6.7-8.2)
[2018-06-17] MEDS: ONDANSETRON 4 MG/2 ML VIAL IVP PRN ×2 (09:00→15:58)
[2018-06-17] MEDS: FAMOTIDINE 20 MG TABLET PO SCH (09:13)
[2018-06-17] MEDS: predniSONE 20 MG TABLET PO SCH (09:13)
[2018-06-17] MEDS: SACCHAROMYCES BOULARDII 250 MG CAPSULE PO SCH ×2 (09:13→16:05)
[2018-06-17] MEDS: NEUTRA-PHOS 250 MG TABLET PO SCH ×3 (09:13→16:04)
[2018-06-17] MEDS: APIXABAN 5 MG TABLET PO SCH ×2 (09:13→21:31)
[2018-06-17] MEDS: MESALAMINE 400 MG CAPSULE PO SCH ×4 (09:14→21:29)
[2018-06-17] MEDS: MORPHINE ER 15 MG TABLET PO SCH ×2 (09:15→21:30)
[2018-06-17] MEDS: METOPROLOL SUCCINATE 25 MG TABLET PO SCH ×2 (09:15→21:31)
[2018-06-17] MEDS: POLYETHYLENE GLYCOL 3350 17 GM PACKET PO SCH (09:16)
[2018-06-17] MEDS: LOPERAMIDE 2 MG CAPSULE PO PRN (09:16)
[2018-06-17] MEDS: DIPHENOX/ATROPINE 2.5/0.025 MG TABLET PO PRN ×2 (10:45→20:41)
--- NOTE | 2018-06-17 15:04 | PROVIDER PROGRESS NOTE ---
Subjective - Prog Note Date Prog Note Date: 06/17/18 - Subjective Pt reports feeling: Improved Subjective: pt report no bloody stool, and occult rapid test is negative as well. Diarrhea is some better, pt still want to have clear liquid diet. Current Medications - Current Medications Current Medications: Active Medications Acetaminophen (Tylenol) 650 mg PO Q4HR PRN PRN Reason: Pain 1 to 4 Last Admin: 06/17/18 00:34 Dose: 650 mg Apixaban (Eliquis) 5 mg PO BID [facility] Last Admin: 06/17/18 09:13 Dose: 5 mg Dicyclomine HCl (Bentyl) 10 mg PO QID PRN PRN Reason: Cramp Last Admin: 06/15/18 09:17 Dose: 10 mg Diphenoxylate HCl/Atropine (Lomotil) 1 tab PO QID PRN PRN Reason: Diarrhea Last Admin: 06/17/18 10:45 Dose: 1 tab Famotidine (Pepcid) 40 mg PO DAILY [facility] Last Admin: 06/17/18 09:13 Dose: 40 mg Gabapentin (Neurontin) 600 mg PO TID [facility] Last Admin: 06/17/18 14:50 Dose: 600 mg Hydromorphone HCl (Dilaudid (Vial)) 2 mg IVP Q2H PRN PRN Reason: PAIN Last Admin: 06/15/18 16:05 Dose: 2 mg Hyoscyamine (Levsin) 0.125 mg SL BID PRN PRN Reason: Abdominal Pain Last Admin: 06/16/18 21:09 Dose: 0.125 mg Potassium Chloride/Sodium Chloride (Normal Saline 0.9% W/20 Meq Kcl) 1,000 mls @ 100 mls/hr IV .Q10H [facility] Last Admin: 06/17/18 02:35 Dose: 100 mls/hr Ciprofloxacin (Cipro 400 Mg/200 Ml) 200 mls @ 200 mls/hr IV Q12H [facility] Last Admin: 06/17/18 14:50 Dose: 200 mls/hr Metronidazole (Flagyl 500 Mg/100 Ml) 500 mg in 100 mls @ 100 mls/hr IV Q8H [facility] Last Admin: 06/17/18 10:45 Dose: 100 mls/hr Levothyroxine Sodium (Synthroid) 88 mcg PO QDAC [facility] Last Admin: 06/17/18 06:21 Dose: 88 mcg Loperamide HCl (Imodium) 2 mg PO QID PRN PRN Reason: Diarrhea Last Admin: 06/17/18 09:16 Dose: 2 mg Lorazepam (Ativan) 0.5 mg PO Q6H PRN PRN Reason: Anxiety Last Admin: 06/16/18 10:01 Dose: 0.5 mg Mesalamine (Delzicol) 400 mg PO QID [facility] Last Admin: 06/17/18 12:18 Dose: 400 mg Metoclopramide HCl (Reglan Inj) 5 mg IVP Q6HR PRN PRN Reason: Nausea / Vomiting Last Admin: 06/17/18 12:19 Dose: 5 mg Metoprolol Succinate (Toprol Xl) 25 mg PO DAILY [facility] Last Admin: 06/17/18 09:15 Dose: 25 mg Metoprolol Succinate (Toprol Xl) 12.5 mg PO HS [facility] Last Admin: 06/16/18 21:08 Dose: 12.5 mg Morphine Sulfate () 45 mg PO BID [facility] Last Admin: 06/17/18 09:15 Dose: 45 mg Multi-Ingredient Ointment (Zinc Oxide) 1 applic TOP PRN PRN PRN Reason: Skin Care Last Admin: 06/15/18 18:10 Dose: 1 applic Ondansetron HCl (Zofran Inj) 4 mg IVP Q6HR PRN PRN Reason: Nausea / Vomiting Last Admin: 06/17/18 09:00 Dose: 4 mg Eletriptan Hbr [ (Relpax] 40 Mg) 1 each PO Q2HR PRN PRN Reason: HEADACHE Olopatadine (Ophthalmic) 1 each EACHEYE BID PRN PRN Reason: ALLERGIC CONJUNCTIVITIS Polyethylene Glycol (Miralax) 17 gm PO DAILY [facility] Last Admin: 06/17/18 09:16 Dose: Not Given Prednisone (Deltasone) 40 mg PO DAILYWM [facility] Last Admin: 06/17/18 09:13 Dose: 40 mg Promethazine HCl (Phenergan Inj) 25 mg IM Q6HR PRN PRN Reason: Nausea / Vomiting Saccharomyces Boulardii (Florastor) 250 mg PO BIDWM [facility] Last Admin: 06/17/18 09:13 Dose: 250 mg Simethicone (Mylicon) 80 mg PO 0900,1300,1800,2100 PRN PRN Reason: Cramp Last Admin: 06/15/18 19:02 Dose: 80 mg Sodium Chloride (Normal Saline Flush 0.9%) 10 ml IVP PRN PRN PRN Reason: NEEDED PER PROVIDER ORDERS Last Admin: 06/17/18 14:57 Dose: 10 ml Sodium Chloride (Normal Saline Flush 0.9%) 10 ml IVP 0100,0900,1700 [facility] Last Admin: 06/17/18 09:16 Dose: Not Given Sodium Phosphate (K-Phos Neutral) 250 mg PO TIDWM [facility] Last Admin: 06/17/18 12:18 Dose: 250 mg Tizanidine HCl (Zanaflex) 4 mg PO BID PRN PRN Reason: Spasms Last Admin: 06/17/18 02:36 Dose: 4 mg Zolpidem Tartrate (Ambien) 5 mg PO QPM PRN PRN Reason: Insomnia Last Admin: 06/16/18 21:06 Dose: 5 mg Eletriptan HBr [Relpax] 40 mg PO Q2HR PRN 12/10/15 Estradiol [Estrace] 1 mg [id number] BIDWM 12/10/15 Gabapentin 600 mg PO TID 12/10/15 HYDROmorphone [Dilaudid] 4 mg PO TID PRN 12/10/15 Levothyroxine [Synthroid] 88 mcg PO QDAC 12/10/15 Morphine Sulfate [Ms Contin] 45 mg PO BID 12/10/15 Olopatadine HCl 1 drop EACHEYE BID PRN 12/10/15 Omeprazole 40 mg PO DAILY 12/10/15 Spironolactone 25 mg PO BID 12/11/15 raNITIdine HCl [Ranitidine HCl] 300 mg PO DAILY 12/11/15 Apixaban [Eliquis] 5 mg PO BID 05/29/18 Bumetanide [Bumex] 1 mg PO DAILY 05/29/18 Hyoscyamine [Levsin] 0.125 mg SL BID PRN 06/14/18 Polyethylene Glycol 3350 [Miralax] 17 gm PO DAILY PRN 06/14/18 tiZANidine [Zanaflex] 4 mg PO BID PRN 06/14/18 Metoprolol Succinate 25 mg PO DAILY 06/16/18 Metoprolol Succinate [Toprol Xl] 12.5 mg PO QPM 10/21/18 Objective - Vital Signs/Intake & Output Reviewed Vital Signs: Yes Vital Signs: Vital Signs x48h Temp Pulse Resp BP BP Pulse Ox 06/17/18 11:51 36.6 C 106 H 18 140/76 H 98 06/17/18 09:11 118/50 L 06/17/18 08:44 36.3 C L 65 18 130/54 L 99 Intake & Output: Intake & Output 06/14/18 06/15/18 06/16/18 06/17/18 23:59 23:59 23:59 23:59 Intake Total 3100 3845.000 3070.000 1378.333 Output Total 900 350 100 Balance 2200 3495.000 2970.000 1378.333 - Objective General Appearance: positive: No acute distress, Alert. negative: Lethargic Eyes Bilateral: positive: Normal inspection, PERRL, No lid inflammation, Conjunctivae nml ENT: positive: ENT inspection nml, Pharynx nml, No signs of dehydration. negative: Purulent nasal drainage, Pharyngeal erythema, Oral lesions Neck: positive: Nml inspection, Thyroid nml, No JVD, Trachea midline. negative: Thyromegaly, Lymphadenopathy (R), Lymphadenopathy (L), Stiff neck, Swelling/bruising, Tracheal deviation Respiratory: positive: Chest non-tender, No respiratory distress, Breath sounds nml. negative: Wheezes, Rales, Rhonchi Cardiovascular: positive: Regular rate & rhythm, No murmur, No gallop. negative : Irregularly irregular, Extrasystoles, Tachycardia, Bradycardia, JVD present, Systolic murmur, Diastolic murmur Peripheral Pulses: 2+ Radial (R), 2+ Radial (L), 2+ Dorsalis pedis (R), 2+ Dorsalis pedis (L) Abdomen: positive: Non-tender, No organomegaly, Nml bowel sounds, No distention. negative: Tenderness, Guarding, Rebound Back: positive: Nml inspection. negative: CVA tenderness (R), CVA tenderness (L) Skin: positive: Color nml, No rash, Warm, Dry. negative: Cyanosis, Diaphoresis, Pallor Extremities: positive: Non-tender, Full ROM, Nml appearance. negative: Calf tenderness, Joint swelling, Jess's sign/cords Neurologic/Psychiatric: positive: Oriented x3, Motor nml, Sensation nml, Mood/affect nml. negative: Weakness, Sensory loss, Facial droop, Slurred/abnml speech, Depressed mood/affect - Lab Results Fish Bones: 06/17/18 05:10 06/17/18 05:10 Other Labs: Lab Results x24hrs 06/17/18 06/17/18 06/16/18 Range/Units 05:10 05:10 15:59 WBC 8.6 (4.8-10.8) x10^3/uL RBC 3.83 L (4.20-5.40) 10^6/uL Hgb 10.8 L 11.4 L (12.0-16.0) g/dL Hct 31.7 L 33.8 L (37.0-47.0) % MCV 82.7 (81.0-99.0) fL MCH 28.1 (27.0-31.0) pg MCHC 33.9 (32.0-36.0) g/dL RDW 15.7 H (12.0-15.0) % Plt Count 230 (130-450) 10^3/uL MPV 8.4 (7.9-10.8) fL Neut # (Auto) 7.2 H (1.5-6.6) 10^3/uL Lymph # (Auto) 0.9 L (1.5-3.5) 10^3/uL [place] # (Auto) 0.5 (0.0-1.0) 10^3/uL Eos # (Auto) 0.0 (0.0-0.7) 10^3/uL Baso # (Auto) 0.0 (0.0-0.1) 10^3/uL Absolute Nucleated RBC 0.00 x10^3/uL Nucleated RBC % 0.0 /100WBC Sodium 135 (135-145) mmol/L Potassium 3.9 (3.5-5.0) mmol/L Chloride 106 (101-111) mmol/L Carbon Dioxide 20 L (21-32) mmol/L Anion Gap 9.0 (6-13) BUN 10 (6-20) mg/dL Creatinine 0.9 (0.4-1.0) mg/dL Estimated GFR (MDRD) 63 L (>89) Glucose 128 H (70-100) mg/dL Calcium 7.9 L (8.5-10.3) mg/dL Total Bilirubin 0.5 (0.2-1.0) mg/dL AST 31 (10-42) IU/L ALT 29 (10-60) IU/L Alkaline Phosphatase 29 L (42-121) IU/L Total Protein 5.6 L (6.7-8.2) g/dL Albumin 2.8 L (3.2-5.5) g/dL Globulin 2.8 (2.1-4.2) g/dL Albumin/Globulin Ratio 1.0 (1.0-2.2) ABX Reporting Has patient been on IV antibiotics over the past 48 hours?: Yes Assessment/Plan - Problem List (1) Diarrhea Impression: 06/17 slight improved. Salmanolla is positive, pt is on Cipro, and Flagyl. 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 WBC is down, no fever today, abdominal pain is controlled. C.Dif is negative. but fecal leukocytes is positive indicate infection/inflammation. continue antibiotics continue IVF continue lab monitor electrolyts (2) MOLLY (acute kidney injury) Conclusion/Plan: improved, continue IVF, and lab monitor Avoid nephrotoxic agents (3) Hypokalemia replacement, continue lab monitor (4) Hyponatremia CONTINUE IVF of NS continue lab monitor (5) Chronic pain better control, continue pain control (6) Hyperglycemia stable, no insulin need at this time (7) Atrial fibrillation stable, continue home meds, and eliquis (8) Hypertension stable (9) Hypothyroidism TSH is normal, continue synthyroid (10) GI bleed resolved. pt report she fresh rectal bleeding, it may come from hemorrhoids but we do not have GI surgeon we can consult now H&H, occult test, CT of abdomen to r/o ischemic since pt continue to have diarrh ea, abdominal pain, rectal bleeding Qualifiers: Diarrhea type: presumed infectious Qualified Code(s): R19.7 - Diarrhea, unspecified
[2018-06-17] MEDS: SIMETHICONE CHEW 80 MG TABLET PO PRN (18:40)
[2018-06-17] MEDS: DICYCLOMINE 10 MG CAPSULE PO PRN (22:54)
[2018-06-17] MEDS: HYDROmorphone 2 MG/ML VIAL IVP PRN (23:51)
[2018-06-18] MEDS ORDERED: diphenhydrAMINE INJ 50 MG/ML VIAL IVP STA (01:36)
[2018-06-18] MEDS: CIPROFLOXACIN 400 MG/200 ML 200 ML IV SCH ×2 (01:57→13:12)
[2018-06-18] MEDS: metroNIDAZOLE 500 MG/100 ML 500 MG/100 ML BAG IV SCH ×3 (03:20→18:01)
[2018-06-18] MEDS: SODIUM CHLORIDE FLUSH 0.9% 10 ML SYRINGE IVP PRN (06:22)
[2018-06-18] MEDS: METOCLOPRAMIDE 10 MG/2 ML VIAL IVP PRN (06:22)
[2018-06-18] MEDS: LEVOTHYROXINE 88 MCG TABLET PO SCH (06:30)
[2018-06-18] MEDS: GABAPENTIN 300 MG CAPSULE PO SCH ×3 (06:30→21:47)
[2018-06-18 06:42] LABS: ALBUMIN 2.9 g/dL (3.2-5.5); ALBUMIN/GLOBULIN RATIO 1.1 (1.0-2.2); BILIRUBIN,TOTAL 0.5 mg/dL (0.2-1.0); CREATININE 0.9 mg/dL (0.4-1.0); MAGNESIUM 2.1 mg/dL (1.7-2.8); PHOSPHORUS 3.4 mg/dL (2.5-4.6); TOTAL PROTEIN 5.6 g/dL (6.7-8.2)
[2018-06-18] MEDS: POLYETHYLENE GLYCOL 3350 17 GM PACKET PO SCH (07:42)
[2018-06-18] MEDS: SACCHAROMYCES BOULARDII 250 MG CAPSULE PO SCH ×2 (08:04→17:44)
[2018-06-18] MEDS: APIXABAN 5 MG TABLET PO SCH ×2 (08:04→21:35)
[2018-06-18] MEDS: predniSONE 20 MG TABLET PO SCH (08:04)
[2018-06-18] MEDS: NEUTRA-PHOS 250 MG TABLET PO SCH ×3 (08:04→17:44)
[2018-06-18] MEDS: SODIUM CHLORIDE FLUSH 0.9% 10 ML SYRINGE IVP SCH ×2 (08:04→17:45)
[2018-06-18] MEDS: METOPROLOL SUCCINATE 25 MG TABLET PO SCH ×2 (08:04→21:36)
[2018-06-18] MEDS: MORPHINE ER 15 MG TABLET PO SCH ×2 (08:04→21:35)
[2018-06-18] MEDS: LOPERAMIDE 2 MG CAPSULE PO PRN ×2 (08:04→21:35)
[2018-06-18] MEDS: MESALAMINE 400 MG CAPSULE PO SCH ×4 (08:04→21:35)
[2018-06-18] MEDS: NS W/20 MEQ KCL 1,000 ML IV SCH ×2 (08:10→21:33)
[2018-06-18] MEDS: FAMOTIDINE 20 MG TABLET PO SCH (10:25)
[2018-06-18] MEDS: DICYCLOMINE 10 MG CAPSULE PO PRN ×2 (11:35→21:35)
[2018-06-18] MEDS: DIPHENOX/ATROPINE 2.5/0.025 MG TABLET PO PRN ×2 (11:35→18:22)
[2018-06-18] MEDS: OCTREOTIDE 100 MCG/ML VIAL SUBQ SCH ×2 (13:11→21:37)
[2018-06-18] MEDS: A & D OINTMENT 5 GM PACKET TOP SCH ×2 (13:17→21:38)
--- NOTE | 2018-06-18 15:20 | PROVIDER PROGRESS NOTE ---
Subjective - Prog Note Date Prog Note Date: 06/18/18 Prog Note Time: 15:17 - Subjective Pt reports feeling: Improved Subjective: Palma states that she continues to have frequent diarrhea and this becomes worse after consuming her full liquid diet or drinking. She denies chest pain, vomiting, bleeding, a rash, or shortness of breath. Current Medications - Current Medications Current Medications: Active Medications Acetaminophen (Tylenol) 650 mg PO Q4HR PRN PRN Reason: Pain 1 to 4 Last Admin: 06/17/18 00:34 Dose: 650 mg Apixaban (Eliquis) 5 mg PO BID HECTOR Last Admin: 06/18/18 08:04 Dose: 5 mg Dicyclomine HCl (Bentyl) 10 mg PO QID PRN PRN Reason: Cramp Last Admin: 06/18/18 11:35 Dose: 10 mg Diphenoxylate HCl/Atropine (Lomotil) 1 tab PO QID PRN PRN Reason: Diarrhea Last Admin: 06/18/18 11:35 Dose: 1 tab Famotidine (Pepcid) 40 mg PO DAILY [facility] Last Admin: 06/18/18 10:25 Dose: 40 mg Gabapentin (Neurontin) 600 mg PO TID [facility] Last Admin: 06/18/18 13:12 Dose: 600 mg Hydromorphone HCl (Dilaudid (Vial)) 2 mg IVP Q2H PRN PRN Reason: PAIN Last Admin: 06/17/18 23:51 Dose: 2 mg Hyoscyamine (Levsin) 0.125 mg SL BID PRN PRN Reason: Abdominal Pain Last Admin: 06/16/18 21:09 Dose: 0.125 mg Potassium Chloride/Sodium Chloride (Normal Saline 0.9% W/20 Meq Kcl) 1,000 mls @ 100 mls/hr IV .Q10H [facility] Last Infusion: 06/18/18 14:12 Dose: 100 mls/hr Ciprofloxacin (Cipro 400 Mg/200 Ml) 200 mls @ 200 mls/hr IV Q12H [facility] Last Infusion: 06/18/18 14:12 Dose: Infused Metronidazole (Flagyl 500 Mg/100 Ml) 500 mg in 100 mls @ 100 mls/hr IV Q8H [facility] Last Infusion: 06/18/18 11:25 Dose: Infused Levothyroxine Sodium (Synthroid) 88 mcg PO QDAC [facility] Last Admin: 06/18/18 06:30 Dose: 88 mcg Loperamide HCl (Imodium) 2 mg PO QID PRN PRN Reason: Diarrhea Last Admin: 06/18/18 08:04 Dose: 2 mg Lorazepam (Ativan) 0.5 mg PO Q6H PRN PRN Reason: Anxiety Last Admin: 06/16/18 10:01 Dose: 0.5 mg Mesalamine (Delzicol) 400 mg PO QID [facility] Last Admin: 06/18/18 13:12 Dose: 400 mg Metoclopramide HCl (Reglan Inj) 5 mg IVP Q6HR PRN PRN Reason: Nausea / Vomiting Last Admin: 06/18/18 06:22 Dose: 5 mg Metoprolol Succinate (Toprol Xl) 25 mg PO DAILY [facility] Last Admin: 06/18/18 08:04 Dose: 25 mg Metoprolol Succinate (Toprol Xl) 12.5 mg PO HS [facility] Last Admin: 06/17/18 21:31 Dose: 12.5 mg Morphine Sulfate () 45 mg PO BID [facility] Last Admin: 06/18/18 08:04 Dose: 45 mg Multi-Ingredient Ointment (Zinc Oxide) 1 applic TOP PRN PRN PRN Reason: Skin Care Last Admin: 06/15/18 18:10 Dose: 1 applic Octreotide Acetate (Sandostatin) 50 mcg SUBQ TID [facility] Last Admin: 06/18/18 13:11 Dose: 50 mcg Ondansetron HCl (Zofran Inj) 4 mg IVP Q6HR PRN PRN Reason: Nausea / Vomiting Last Admin: 06/17/18 15:58 Dose: 4 mg Eletriptan Hbr [ (Relpax] 40 Mg) 1 each PO Q2HR PRN PRN Reason: HEADACHE Olopatadine (Ophthalmic) 1 each EACHEYE BID PRN PRN Reason: ALLERGIC CONJUNCTIVITIS Polyethylene Glycol (Miralax) 17 gm PO DAILY [facility] Last Admin: 06/18/18 07:42 Dose: Not Given Prednisone (Deltasone) 40 mg PO DAILYWM [facility] Last Admin: 06/18/18 08:04 Dose: 40 mg Promethazine HCl (Phenergan Inj) 25 mg IM Q6HR PRN PRN Reason: Nausea / Vomiting Saccharomyces Boulardii (Florastor) 250 mg PO BIDWM [facility] Last Admin: 06/18/18 08:04 Dose: 250 mg Simethicone (Mylicon) 80 mg PO 0900,1300,1800,2100 PRN PRN Reason: Cramp Last Admin: 06/17/18 18:40 Dose: 80 mg Sodium Chloride (Normal Saline Flush 0.9%) 10 ml IVP PRN PRN PRN Reason: NEEDED PER PROVIDER ORDERS Last Admin: 06/18/18 06:22 Dose: 10 ml Sodium Chloride (Normal Saline Flush 0.9%) 10 ml IVP 0100,0900,1700 [facility] Last Admin: 06/18/18 08:04 Dose: Not Given Sodium Phosphate (K-Phos Neutral) 250 mg PO TIDWM [facility] Last Admin: 06/18/18 11:35 Dose: 250 mg Tizanidine HCl (Zanaflex) 4 mg PO BID PRN PRN Reason: Spasms Last Admin: 06/17/18 02:36 Dose: 4 mg Vitamin A/Vitamin D (Vitamin A & D Ointment) 1 applic TOP TID [facility] Last Admin: 06/18/18 13:17 Dose: 1 applic Zolpidem Tartrate (Ambien) 5 mg PO QPM PRN PRN Reason: Insomnia Last Admin: 06/16/18 21:06 Dose: 5 mg Morphine Sulfate [Ms Contin] 45 mg PO BID 12/10/15 RX: Eletriptan HBr [Relpax] 40 mg PO Q2HR PRN 12/10/15 RX: Estradiol [Estrace] 1 mg [id number] BIDWM 12/10/15 RX: Gabapentin 600 mg PO TID 12/10/15 RX: HYDROmorphone [Dilaudid] 4 mg PO TID PRN 12/10/15 RX: Levothyroxine [Synthroid] 88 mcg PO QDAC 12/10/15 RX: Olopatadine HCl 1 drop EACHEYE BID PRN 12/10/15 RX: Omeprazole 40 mg PO DAILY 12/10/15 RX: Spironolactone 25 mg PO BID 12/11/15 RX: raNITIdine HCl [Ranitidine HCl] 300 mg PO DAILY 12/11/15 Apixaban [Eliquis] 5 mg PO BID 05/29/18 Bumetanide [Bumex] 1 mg PO DAILY 05/29/18 Hyoscyamine [Levsin] 0.125 mg SL BID PRN 06/14/18 Polyethylene Glycol 3350 [Miralax] 17 gm PO DAILY PRN 06/14/18 tiZANidine [Zanaflex] 4 mg PO BID PRN 06/14/18 Metoprolol Succinate [Toprol Xl] 12.5 mg PO QPM 06/16/18 RX: Metoprolol Succinate 25 mg PO DAILY 06/16/18 Objective - Vital Signs/Intake & Output Reviewed Vital Signs: Yes Vital Signs: Vital Signs x48h Temp Pulse Resp BP Pulse Ox 06/18/18 12:06 36.9 C 54 L 16 137/69 H 100 06/18/18 09:00 36.7 C 65 16 129/83 H 100 Intake & Output: Intake & Output 06/15/18 06/16/18 06/17/18 06/18/18 23:59 23:59 23:59 23:59 Intake Total 3845.000 3070.000 3378.333 2461.667 Output Total 350 100 Balance 3495.000 2970.000 3378.333 2461.667 - Objective General Appearance: positive: No acute distress, Alert Eyes Bilateral: positive: PERRL Eyes: OU Conjunctivae pale ENT: positive: Pharynx nml, No signs of dehydration Neck: positive: Nml inspection, Thyroid nml, No JVD Respiratory: positive: Chest non-tender, No respiratory distress, Breath sounds nml Cardiovascular: positive: Regular rate & rhythm, No gallop, Systolic murmur Peripheral Pulses: 1+ Radial (R), 1+ Radial (L) Abdomen: positive: Non-tender, Nml bowel sounds, Other (obese, soft) Back: positive: Nml inspection Skin: positive: No rash, Warm, Dry Extremities: positive: Non-tender, Full ROM, Nml appearance Neurologic/Psychiatric: positive: Oriented x3, CN's nml (2-12), Motor nml, Sensation nml, Mood/affect nml Reflexes: Bicep (R): 3+, Bicep (L): 3+ - Lab Results Fish Bones: 06/17/18 05:10 06/19/18 05:59 Other Labs: Lab Results x24hrs 10/23/18 Range/Units 06:12 Sodium 137 (135-145) mmol/L Potassium 3.6 (3.5-5.0) mmol/L Chloride 110 (101-111) mmol/L Carbon Dioxide 22 (21-32) mmol/L Anion Gap 5.0 L (6-13) BUN 9 (6-20) mg/dL Creatinine 0.9 (0.4-1.0) mg/dL Estimated GFR (MDRD) 63 L (>89) Glucose 96 (70-100) mg/dL Calcium 8.0 L (8.5-10.3) mg/dL Phosphorus 3.4 (2.5-4.6) mg/dL Magnesium 2.1 (1.7-2.8) mg/dL Total Bilirubin 0.5 (0.2-1.0) mg/dL AST 38 (10-42) IU/L ALT 33 (10-60) IU/L Alkaline Phosphatase 30 L (42-121) IU/L Total Protein 5.6 L (6.7-8.2) g/dL Albumin 2.9 L (3.2-5.5) g/dL Globulin 2.7 (2.1-4.2) g/dL Albumin/Globulin Ratio 1.1 (1.0-2.2) ABX Reporting Has patient been on IV antibiotics over the past 48 hours?: Yes Assessment/Plan - Problem List (1) Gastroenteritis, Salmonella Impression: As per stool culture results, the patient was found to test + for salmonella. She has been on IV cipro for this, which continues. Plan: Continue to advance diet, continue IVFs, IV cipro, and symptom control. (2) Diarrhea Impression: The patient had recurrent diarrhea that seemed to be improving last evening, but today has become very frequent and the patient reports up to 7 stools since this morning. I have added Octriotide SQ injections, and A & D ointment for her anal skin that has become "raw". Plan: Continue to provide support, give Lomotil as needed and scheduled SQ injections. Qualifiers: Diarrhea type: presumed infectious Qualified Code(s): R19.7 - Diarrhea, unspecified (3) Atrial fibrillation Impression: The patient is prescribed metoprolol and eliquis at home, that continues here. Plan: Continue meds and monitor vital signs. Qualifiers: Atrial fibrillation type: unspecified Qualified Code(s): I48.91 - Unspec ified atrial fibrillation (4) Chronic pain Impression: The patient is prescribed morphine 45mg BID, Zanaflex at home. She states that her pain is in her mid-low back and this is chronic. Plan: continue meds. Qualifiers: Chronic pain type: other chronic pain Qualified Code(s): G89.29 - Other chronic pain (5) Hypertension Impression: The patient is prescribed Bumex daily, metoprolol and spironolactone at home, that continues here. Her blood pressure today is 134/69. Plan: Continue meds and monitor VSs. Qualifiers: Hypertension type: essential hypertension Qualified Code(s): I10 - Essential (primary) hypertension (6) MOLLY (acute kidney injury) Impression: The patient has a slightly elevated creatinine of 0.9 today. She remains on IV fluids and her diuretics are on hold. Plan: Continue to monitor daily labs.
[2018-06-18] MEDS: HYOSCYAMINE SL 0.125 MG TABLET SL PRN ×2 (17:50→17:51)
[2018-06-19] MEDS: DIPHENOX/ATROPINE 2.5/0.025 MG TABLET PO PRN ×2 (00:44→09:27)
[2018-06-19] MEDS: tiZANidine 4 MG TABLET PO PRN (00:44)
[2018-06-19] MEDS: CIPROFLOXACIN 400 MG/200 ML 200 ML IV SCH (00:45)
[2018-06-19] MEDS: METOCLOPRAMIDE 10 MG/2 ML VIAL IVP PRN (01:13)
[2018-06-19] MEDS: SODIUM CHLORIDE FLUSH 0.9% 10 ML SYRINGE IVP SCH ×2 (01:13→08:10)
[2018-06-19] MEDS: ACETAMINOPHEN 325 MG TABLET PO PRN ×3 (01:14→13:18)
[2018-06-19] MEDS: SIMETHICONE CHEW 80 MG TABLET PO PRN (01:14)
[2018-06-19] MEDS: NS W/20 MEQ KCL 1,000 ML IV SCH (01:30)
[2018-06-19] MEDS: metroNIDAZOLE 500 MG/100 ML 500 MG/100 ML BAG IV SCH (01:59)
[2018-06-19] MEDS: A & D OINTMENT 5 GM PACKET TOP SCH ×2 (06:28→13:19)
[2018-06-19] MEDS: GABAPENTIN 300 MG CAPSULE PO SCH ×2 (06:29→13:19)
[2018-06-19] MEDS: LEVOTHYROXINE 88 MCG TABLET PO SCH (06:29)
[2018-06-19] MEDS: OCTREOTIDE 100 MCG/ML VIAL SUBQ SCH ×2 (06:29→13:18)
[2018-06-19 06:45] LABS: ALBUMIN 2.9 g/dL (3.2-5.5); ALBUMIN/GLOBULIN RATIO 1.2 (1.0-2.2); BILIRUBIN,TOTAL 0.5 mg/dL (0.2-1.0); CALCIUM 8.1 mg/dL (8.5-10.3); CREATININE 1.1 mg/dL (0.4-1.0); MAGNESIUM 2.2 mg/dL (1.7-2.8); PHOSPHORUS 4.4 mg/dL (2.5-4.6); TOTAL PROTEIN 5.4 g/dL (6.7-8.2)
[2018-06-19 07:50] VITALS: BP 115/57
[2018-06-19] MEDS: SACCHAROMYCES BOULARDII 250 MG CAPSULE PO SCH (08:07)
[2018-06-19] MEDS: APIXABAN 5 MG TABLET PO SCH (08:08)
[2018-06-19] MEDS: MESALAMINE 400 MG CAPSULE PO SCH ×2 (08:08→13:18)
[2018-06-19] MEDS: MORPHINE ER 15 MG TABLET PO SCH (08:08)
[2018-06-19] MEDS: METOPROLOL SUCCINATE 25 MG TABLET PO SCH (08:09)
[2018-06-19] MEDS: predniSONE 20 MG TABLET PO SCH (08:09)
[2018-06-19] MEDS: NEUTRA-PHOS 250 MG TABLET PO SCH (08:09)
[2018-06-19] MEDS: POLYETHYLENE GLYCOL 3350 17 GM PACKET PO SCH (08:10)
[2018-06-19] MEDS ORDERED: METOPROLOL SUCCINATE 25 MG TABLET PO SCH ×3 (09:00→21:00)
[2018-06-19] MEDS ORDERED: CIPROFLOXACIN 250 MG TABLET PO SCH (09:00)
[2018-06-19] MEDS ORDERED: BUMETANIDE 1 MG TABLET PO SCH (09:00)
[2018-06-19] MEDS ORDERED: metroNIDAZOLE 250 MG TABLET PO SCH (09:00)
[2018-06-19] MEDS ORDERED: SPIRONOLACTONE 25 MG TABLET PO SCH (09:00)
--- NOTE | 2018-06-19 09:00 | Discharge Plan ---
Discharge Plan Disposition: Home, Self Care Condition: Good Prescriptions: Ciprofloxacin [Cipro] 500 mg PO BID #12 tablet Diphenoxylate/Atropine [Lomotil] 1 tab PO QID PRN #20 tablet PRN Reason: Diarrhea Hyoscyamine [Levsin] 0.125 mg SL BID PRN #20 tablet PRN Reason: Abdominal Pain Mesalamine [Delzicol] 400 mg PO QID #120 capsule metroNIDAZOLE [Flagyl] 500 mg PO BID #12 tablet predniSONE [Deltasone] 20 mg PO DAILYWM #2 tablet Diet: Soft Activity Restrictions: No Restrictions Shower Restrictions: No Driving Restrictions: No Weight Bearing: Full Weight Additional Instructions or Follow Up instructions: You were admitted with diarrhea, nausea and vomiting. Stool cultures showed Salmonella, which was the most likely cause of your illness. You were started on Cipro and Flagyl, which you should continue in a pill form for the next 6 days at home. You had electrolyte abnormalities, mainly your sodium level, which you were started on Prednisone for. You should only take a few more days of this. Please resume all of your other regular medications. Please see your primary care provider within the next week. No Smoking: If you smoke, Please STOP! Call for help. Follow-up with: Luther Briscoe MD [Primary Care Provider] -
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
[2018-06-19] MEDS: LOPERAMIDE 2 MG CAPSULE PO PRN (09:27)
[2018-06-19] MEDS: FAMOTIDINE 20 MG TABLET PO SCH (09:27)
[2018-06-19] MEDS: ONDANSETRON 4 MG/2 ML VIAL IVP PRN (09:28)
[2018-06-19] MEDS: HYOSCYAMINE SL 0.125 MG TABLET SL PRN (13:18)
[2018-06-19 19:17] LABS: NOROVIRUS RNA PCR STOOL NOT DETECTED
[2018-06-20] MEDS ORDERED: predniSONE 20 MG TABLET PO SCH (08:00)
== END 2018-06-19 15:14 | disposition home or self-care (01) | DRG 372 ==
LOC: ED 21:49 → OBS 06-14 00:05 → OBSVTOIN 06-14 12:27 → MS2 06-14 14:46
PROVIDERS: ADMIT Internal Medicine; ATTEND Nurse Practitioner
DX: R19.7 Diarrhea, unspecified (principal); R50.9 Fever, unspecified; D72.829 Elevated white blood cell count, unspecified; R10.30 Lower abdominal pain, unspecified; A02.0 Salmonella enteritis; N17.9 Acute kidney failure, unspecified; E87.1 Hypo-osmolality and hyponatremia; I50.30 Unspecified diastolic (congestive) heart failure; E03.9 Hypothyroidism, unspecified; R11.2 Nausea with vomiting, unspecified; R73.9 Hyperglycemia, unspecified; E86.0 Dehydration; E87.6 Hypokalemia; E87.8 Other disorders of electrolyte and fluid balance, not elsewhere classified; K21.9 Gastro-esophageal reflux disease without esophagitis; K58.9 Irritable bowel syndrome, unspecified; I48.91 Unspecified atrial fibrillation; I11.0 Hypertensive heart disease with heart failure; F32.9 Major depressive disorder, single episode, unspecified; M54.2 Cervicalgia; M54.5 Low back pain; Z86.79 Personal history of other diseases of the circulatory system; G89.21 Chronic pain due to trauma; Z90.49 Acquired absence of other specified parts of digestive tract; Z90.710 Acquired absence of both cervix and uterus; Z20.818 Contact with and (suspected) exposure to other bacterial communicable diseases; Y93.K9 Activity, other involving animal care; Z79.01 Long term (current) use of anticoagulants; Z79.899 Other long term (current) drug therapy; Z79.891 Long term (current) use of opiate analgesic
CPT/HCPCS: 36415; 74176; 74177; 80053; 81001; 81003; 82272; 83036; 83605; 83630; 83690; 83735; 83993; 84100; 84443; 85014; 85018; 85025; 85651; 86140; 87045; 87046; 87077; 87086; 87177; 87181; 87209; 87275; 87276; 87493; 87798; 93005; 93306; 96365; 96366; 96367; 96368; 96375; 96376; 99283; 99284

== ENCOUNTER 2018-07-24 08:00 | Outpatient (CLI) | payer MEDICARE, OTHER | END 2018-07-24 08:01 | disposition home or self-care (01) | LOC: LAB.R 08:00 | PROVIDERS: ATTEND Registered Nurse | DX: R19.7 Diarrhea, unspecified (principal) | CPT/HCPCS: 83993; 87045; 87046; 87493 ==

== ENCOUNTER 2018-09-10 08:00 | Outpatient (CLI) | payer MEDICARE, OTHER | END 2018-09-10 23:59 | disposition home or self-care (01) | LOC: LAB.R 08:00 | PROVIDERS: ATTEND Registered Nurse | DX: R19.7 Diarrhea, unspecified (principal) | CPT/HCPCS: 87493 ==

== ENCOUNTER 2018-10-22 08:00 | Outpatient (CLI) | payer MEDICARE, OTHER | END 2018-10-22 23:59 | disposition home or self-care (01) | LOC: LAB.R 08:00 | PROVIDERS: ATTEND Registered Nurse | DX: B96.89 Other specified bacterial agents as the cause of diseases classified elsewhere (principal) | CPT/HCPCS: 87493 ==

== ENCOUNTER 2021-10-10 11:11 | Outpatient (CLI) | payer MEDICARE, OTHER | END 2021-10-10 11:12 | disposition home or self-care (01) | LOC: LAB 11:11 | PROVIDERS: ATTEND Nurse Practitioner Family | DX: F33.1 Major depressive disorder, recurrent, moderate (principal) | CPT/HCPCS: 36415; 81599; 82575; 84132 ==

== ENCOUNTER 2021-11-19 00:16 | Emergency (ER) | payer MEDICARE, OTHER ==
--- OUTSIDE RECORDS SUMMARY | 2021-11-19 00:35 | EXTERNAL MEDICAL SUMMARY RPT | Continuity of Care Document ---
:1955 Author Organization [facility] Address [address] [place] [address] Phone Care Team Providers Name Role Phone Erna Rdz Unavailable Unavailable Allergies No information. Encounters No information. Medications date description facility 20210906 Levothyroxine Sodium 0.088 MG Oral Caps [facility] 20210906 Morphine Sulfate 15 MG Oral Tablet [facility] 20210906 Morphine Sulfate 15 MG Extended Release Tablet [facility] 20210906 24 HR metoprolol succinate 25 MG Extend ed Release [facility] Tablet 20210906 Diclofenac Sodium 0.01 MG/MG Topical Ge l [facility] 20210906 Escitalopram 10 MG Oral Tablet [facility] 20210906 tizanidine 4 MG Oral Tablet [facility] 20210906 Spironolactone 25 MG Oral Tablet [facility] 20210906 Folic Acid 1 MG Oral Tablet [facility] 20210906 Famotidine [address] [facility] 20210906 topiramate [address] [facility] 20210906 Magnesium Oxide 400 MG Oral Tablet [facility] 20210906 Ondansetron [address] [facility] 20210906 Omeprazole 20 MG Enteric Coated Capsule [facility] 20210906 Bumetanide 1 MG Oral Tablet [facility] 20210906 Riboflavin 400 MG Oral Tablet [facility] 20210906 apixaban 5 MG Oral Tablet [facility] 20210906 24 HR mirabegron 25 MG Extended Release Tablet [facility] 20210906 hydrocortisone acetate 25 MG Rectal Sup [facility] 20210906 olopatadine 1 MG/ML Ophthalmic Solution [facility] 20210906 Methotrexate 2.5 MG Oral Tablet [facility] 20210906 12 HR Hyoscyamine Sulfate 0.375 MG Exte nded Release [facility] Tablet 20210901 Estradiol 0.01 MG Vaginal Tablet [facility] Problems Procedures date description facility [id number] [facility] 20211015 [facility] [id number] [facility] Results No information. Vital Signs date measurement value source 20210901 weight_standard 187.99 lb 20210901 weight_metric 85.27 kg 20210901 height_standard 63 in 20210901 height_metric 160.02 cm 20210901 BP_systolic 104 mm[Hg] 20210901 BP_diastolic 64 mm[Hg] 20210901 BMI 33.3 kg/m2 20211116 weight_standard 86.18 lb 20211116 weight_metric 39.09 kg 20211116 height_standard 63 in 20211116 height_metric 160.02 cm 20211116 BP_systolic 100 mm[Hg] 20211116 BP_diastolic 58 mm[Hg] 20211116 BMI 33.6 kg/m2
[2021-11-19] MEDS ORDERED: SODIUM CHLORIDE 0.9% 1,000 ML IV STA (00:45)
[2021-11-19 00:50] LABS: BASOPHILS # (AUTO) 0.1 10^3/uL (0.0-0.1); BASOPHILS % (AUTO) 0.6 %; EOSINOPHILS # (AUTO) 0.2 10^3/uL (0.0-0.7); EOSINOPHILS % (AUTO) 2.5 %; HCT - HEMATOCRIT 38.7 % (37.0-47.0); HGB - HEMOGLOBIN 13.1 g/dL (12.0-16.0); LYMPHOCYTES # (AUTO) 1.9 10^3/uL (1.5-3.5); LYMPHOCYTES % (AUTO) 20.6 %; MEAN CORPUSCULAR HEMOGLOBIN 31.7 pg (27.0-31.0); MEAN CORPUSCULAR HGB CONC 33.9 g/dL (32.0-36.0); MEAN CORPUSCULAR VOLUME 93.7 fL (81.0-99.0); MEAN PLATELET VOLUME 9.8 fL (7.9-10.8); MONOCYTES # (AUTO) 1.2 10^3/uL (0.0-1.0); MONOCYTES % (AUTO) 12.9 %; NEUTROPHILS # (AUTO) 5.8 10^3/uL (1.5-6.6); NEUTROPHILS % (AUTO) 62.9 %; PLT - PLATELET COUNT 264 10^3/uL (130-450); RED BLOOD COUNT 4.13 10^6/uL (4.20-5.40); RED CELL DISTRIBUTION WIDTH 14.2 % (12.0-15.0); WHITE BLOOD COUNT 9.2 x10^3/uL (4.8-10.8)
[2021-11-19 01:03] LABS: ALBUMIN 3.9 g/dL (3.2-5.5); ALBUMIN/GLOBULIN RATIO 1.2 (1.0-2.2); BILIRUBIN,TOTAL 0.4 mg/dL (0.2-1.0); CREATININE 1.2 mg/dL (0.4-1.0); MAGNESIUM 2.1 mg/dL (1.7-2.8); POTASSIUM 3.6 mmol/L (3.5-5.0); TOTAL PROTEIN 7.2 g/dL (6.7-8.2)
--- NOTE | 2021-11-19 01:03 | ED Physician Documentation ---
PD HPI CHEST PAIN - Stated complaint Stated Complaint: RAPPED HEART RATE - Chief complaint Chief Complaint: Cardiac - History obtained from History obtained from: Patient - Additional information Additional information: Patient is a 66-year-old female with a history significant for atrial fibrillation. She is compliant with her medications including Eliquis. Today throughout the day she has felt her heart racing and noted that her heart rate ranged from 80-1 20. At times she reported feeling lightheaded and a pressure sensation in her chest. She currently feels no symptoms and states her heart does not feel like it is racing. She denies needing prior cardioversion or procedures for her atrial fibrillation. She denies Syncope, difficulty breathing, vomiting. She does report recent loose stools as she is weaning off of opiates. Review of Systems Constitutional: denies: Fever Cardiac: reports: Chest pain / pressure, Palpitations Respiratory: denies: Dyspnea, Cough GI: reports: Diarrhea. denies: Abdominal Pain, Nausea, Vomiting : denies: Dysuria Skin: denies: Rash Neurologic: denies: Syncope, Headache PD PAST MEDICAL HISTORY - Past Medical History Past Medical History: Yes Cardiovascular: Hypertension, Atrial fibrillation Respiratory: None Neuro: Migraines Endocrine/Autoimmune: HyPOthyroidism GI: GERD, Other PEDODONTIST: None : None HEENT: None Psych: Depression, Anxiety Musculoskeletal: Chronic back pain, Other Derm: Herpes zoster - Past Surgical History Past Surgical History: Yes General: Cholecystectomy, Other Ortho: Arthroscopic surgery, Spine surgery, Other /PEDODONTIST: section, Hysterectomy, Oophrectomy HEENT: Cataracts, Other - Present Medications Home Medications: Ambulatory Orders Medication Instructions Recorded Confirmed Morphine Sulfate [Ms Contin] 15 mg PO Q6HR PRN 12/10/15 11/19/21 Olopatadine HCl 1 drop EACHEYE BID PRN 12/10/15 11/19/21 Spironolactone 25 mg PO DAILY 12/11/15 11/19/21 Apixaban [Eliquis] 5 mg PO BID 05/29/18 11/19/21 ondansetron HCL [Zofran] 4 mg PO Q6H PRN #12 tablet 05/29/18 11/19/21 Metoprolol Succinate 12.5 mg PO BID 06/16/18 11/19/21 Brexpiprazole [Rexulti] 2 mg PO 11/19/21 Cyanocobalamin (Vitamin B-12) 500 mcg PO DAILY 11/19/21 11/19/21 [Vitamin B-12] Diclofenac Sodium [Voltaren 2 gm TOP DAILY PRN MDD 8 gm 11/19/21 11/19/21 Arthritis Pain] Escitalopram [Lexapro] 20 mg PO DAILY 11/19/21 11/19/21 Estradiol [Vagifem] 10 mcg VG 11/19/21 11/19/21 Famotidine 40 mg PO HS 11/19/21 11/19/21 Fluticasone [Flonase] 1 sprays NANDINI BID 11/19/21 11/19/21 Folic Acid 2 mg PO DAILY 11/19/21 11/19/21 Hydrocortisone [Anusol-Hc] 1 supp [place] BID PRN 11/19/21 11/19/21 Hyoscyamine [Levsin] 0.375 mg PO BID 11/19/21 11/19/21 Magnesium Oxide 400 mg PO DAILY 11/19/21 11/19/21 Methotrexate [Methotrexate Sodium] 2.5 mg PO DAILY 11/19/21 11/19/21 Naloxone HCl Nasal [Narcan Nasal] 1 spray IN ONCE PRN 11/19/21 11/19/21 Potassium Chloride 10 meq PO 11/19/21 Pregabalin [Lyrica] 150 mg PO BID 11/19/21 11/19/21 Riboflavin (Vitamin B2) 400 mg PO DAILY 11/19/21 11/19/21 [Riboflavin] hydrOXYzine pamoate [Hydroxyzine 25 mg PO 11/19/21 Pamoate] - Allergies Allergies/Adverse Reactions: Allergies Allergy/AdvReac Type Severity Reaction Status Date / Time codeine Allergy Itching Verified 11/19/21 00:22 prochlorperazine AdvReac Intermediate Unknown Verified 11/19/21 00:22 [From Compazine] - Social History Does the pt smoke?: No Smoking Status: Never smoker Does the pt drink ETOH?: No Does the pt have substance abuse?: No - Immunizations Immunizations are current?: Yes - POLST Patient has POLST: No POLST Status: Full Code PD ED PE NORMAL - General General: Alert and oriented X 3, No acute distress, Well developed/nourished - HEENT HEENT: Atraumatic - Neck Neck: Supple, no meningeal sign - Cardiac Cardiac: No murmur, Strong equal pulses, Other (Regular rate, irregularly irregular rhythm) - Respiratory Respiratory: No respiratory distress, Clear bilaterally - Abdomen Abdomen: Normal bowel sounds, Soft, Non tender, Non distended - Derm Derm: Normal color, Warm and dry - Extremities Extremities: No deformity, No edema - Neuro Neuro: No motor deficit, Normal speech - Psych Psych: Normal mood, Normal affect Results - Vitals Vitals: Vital Signs - 24 hr 11/19/21 11/19/21 11/19/21 00:22 00:45 00:46 Temperature 36.5 C Heart Rate 66 73 Respiratory 16 11 L Rate Blood Pressure 140/83 H 130/89 H Blood Pressure 130/89 H [Left] O2 Saturation 98 98 11/19/21 11/19/21 11/19/21 01:22 01:54 02:16 Temperature 36.4 C L Heart Rate 70 78 74 Respiratory 10 L 18 13 Rate Blood Pressure 117/78 117/77 118/76 Blood Pressure [Left] O2 Saturation 96 100 99 Oxygen O2 Source Room air - EKG (time done) 0028 Rate: Rate (enter#) (80) Rhythm: Atrial fibrillation [place]: Normal Ischemia: No: ST elevation c/w ischemia - Labs Labs: Laboratory Tests 11/19/21 11/19/21 11/19/21 00:44 00:44 00:44 WBC 9.2 RBC 4.13 L Hgb 13.1 Hct 38.7 MCV 93.7 MCH 31.7 H MCHC 33.9 RDW 14.2 Plt Count 264 MPV 9.8 Neut # (Auto) 5.8 Lymph # (Auto) 1.9 [place] # (Auto) 1.2 H Eos # (Auto) 0.2 Baso # (Auto) 0.1 Absolute Nucleated RBC 0.00 Nucleated RBC % 0.0 Sodium 136 Potassium 3.6 Chloride 99 L Carbon Dioxide 26 Anion Gap 11.0 BUN 25 H Creatinine 1.2 H Estimated GFR (MDRD) 45 L Glucose 118 H Calcium 9.0 Magnesium 2.1 Total Bilirubin 0.4 AST 21 ALT 24 Alkaline Phosphatase 46 Troponin I High Sens 7.3 Total Protein 7.2 Albumin 3.9 Globulin 3.3 Albumin/Globulin Ratio 1.2 PD MEDICAL DECISION MAKING - ED course ED course: Patient presenting for evaluation of palpitations. Has not history of atrial fibrillation. She has been rate controlled while in the emergency department. Labs are reassuring. Patient feels better after IV fluids. Do not think her symptoms are suggestive of ACS or pulmonary embolism. Normal neuro exam.She does not have symptoms to warrant emergent cardioversion. 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 214 - Feeling better, no symptoms, Ambulated to bathroom. Departure - Departure Disposition: 01 Home, Self Care Clinical Impression: Atrial fibrillation Qualifiers: Atrial fibrillation type: paroxysmal Qualified Code(s): I48.0 - Paroxysmal atrial fibrillation Condition: Stable Instructions: ED Afib Comments: You were evaluated today for atrial fibrillation. Fortunately your heart rate has been controlled and your symptoms have improved after IV fluids. Continue with your medications as prescribed. Continue with hydration this weekend. Also avoid caffeine or alcohol which may Increase your heart rate. If you again develop symptomsSuch as dizziness, chest pain, difficulty breathing please return to the emergency department. Otherwise please follow-up with your stadium manager next week. Discharge Date/Time: 11/19/21 02:22
--- NOTE | 2021-11-19 01:17 | XRAY Report ---
PROCEDURE: Chest 1 View X-Ray INDICATIONS: lightheaded TECHNIQUE: One view of the chest was acquired. COMPARISON: Chest x-ray . FINDINGS: Surgical changes and devices: None. Lungs and pleura: No pleural effusions or pneumothorax. Lungs are clear. Mediastinum: Mediastinal contours appear normal. Heart size is normal. Bones and chest wall: No suspicious bony lesions. Overlying soft tissues appear unremarkable. IMPRESSION: 1. No acute cardiopulmonary disease. Reviewed by: Amrit Betancur MD on 11/19/2021 1:15 AM PDT Approved by: Amrit Betancur MD on 11/19/2021 1:15 AM PDT Station ID: [id number]
[2021-11-19 02:18] VITALS: BP 118/76
== END 2021-11-19 02:22 | disposition home or self-care (01) ==
LOC: ED 00:16
DX: I48.91 Unspecified atrial fibrillation (principal); Z79.01 Long term (current) use of anticoagulants
CPT/HCPCS: 36415; 80053; 83735; 84484; 85025; 93005; 96360; 99284

== ENCOUNTER 2021-11-29 11:39 | Emergency (ER) | payer MEDICARE, OTHER ==
--- OUTSIDE RECORDS SUMMARY | 2021-11-29 11:53 | EXTERNAL MEDICAL SUMMARY RPT | Continuity of Care Document ---
:1955 Author Organization [facility] Address [address] [place] [address] Phone Care Team Providers Name Role Phone Kajal Unavailable Unavailable Allergies No information. Encounters No information. Medications date description facility 20210906 Levothyroxine Sodium 0.088 MG Oral Caps [facility] 20210906 Morphine Sulfate 15 MG Oral Tablet [facility] 20210906 Morphine Sulfate 15 MG Extended Release Tablet [facility] 20210906 24 HR metoprolol succinate 25 MG Extend ed Release [facility] Tablet 20210906 Diclofenac Sodium 0.01 MG/MG Topical Ge l [facility] 20210906 Escitalopram 10 MG Oral Tablet [facility] 20210906 tizanidine 4 MG Oral Tablet [facility] 20210906 Spironolactone 25 MG Oral Tablet [facility] 20210906 Folic Acid 1 MG Oral Tablet [facility] 20210906 Famotidine 40 MG Oral Tablet [facility] 20210906 topiramate 25 MG Oral Tablet [facility] 20210906 Magnesium Oxide 400 MG Oral Tablet [facility] 20210906 Ondansetron 4 MG Oral Tablet [facility] 20210906 Omeprazole 20 MG Enteric Coated Capsule [facility] 20210906 Bumetanide 1 MG Oral Tablet [facility] 20210906 Riboflavin 400 MG Oral Tablet [facility] 20210906 apixaban 5 MG Oral Tablet [facility] 20210906 24 HR mirabegron 25 MG Extended Release Tablet [facility] 20210906 hydrocortisone acetate 25 MG Rectal Sup [facility] 20210906 olopatadine 1 MG/ML Ophthalmic Solution [facility] 20210906 Methotrexate 2.5 MG Oral Tablet [facility] 20210906 12 HR Hyoscyamine Sulfate 0.375 MG Exte nded Release [facility] Tablet 20210901 Estradiol 0.01 MG Vaginal Tablet [facility] Problems Procedures date description facility [id number] [facility] 20211015 [facility] 20210901 [facility] Results No information. Vital Signs date measurement [...]
--- NOTE | 2021-11-29 12:24 | ED Physician Documentation ---
History of Present Illness - Stated complaint Stated Complaint: ELEVATED HEART RATE SENT BY - Chief complaint Chief Complaint: Cardiac - History obtained from History obtained from: Patient - History of Present Illness Timing: Last night Pain level max: 0 Pain level now: 0 - Additonal information Additional information: Patient is a 66-year-old female who presents to the emergency department stating she has a history of atrial fibrillation. She states that last night she took her heart rate and it was elevated into the 140s and 150s. This morning it was around 110 but would drop down to 90. She called her correctional guard to ask about taking an extra dose of metoprolol and they referred her here for further care. Patient is asymptomatic. Review of Systems Constitutional: denies: Fever, Chills Cardiac: reports: Palpitations. denies: Chest pain / pressure Respiratory: denies: Cough GI: denies: Nausea, Vomiting, Diarrhea Skin: denies: Rash Musculoskeletal: denies: Neck pain, Back pain Neurologic: denies: Headache PD PAST MEDICAL HISTORY - Past Medical History Cardiovascular: Hypertension, Atrial fibrillation Respiratory: None Neuro: Migraines Endocrine/Autoimmune: HyPOthyroidism GI: GERD, Other TERRITORY ACCOUNT MANAGER: None : None HEENT: None Psych: Depression, Anxiety Musculoskeletal: Chronic back pain, Other Derm: Herpes zoster - Past Surgical History Past Surgical History: Yes General: Cholecystectomy, Other Ortho: Arthroscopic surgery, Spine surgery, Other /TERRITORY ACCOUNT MANAGER: section, Hysterectomy, Oophrectomy HEENT: Cataracts, Other - Present Medications Home Medications: Ambulatory Orders Medication Instructions Recorded Confirmed Morphine Sulfate [Ms Contin] 7.5 mg PO Q6HR PRN 12/10/15 11/29/21 Olopatadine HCl 1 drop EACHEYE BID PRN 12/10/15 11/29/21 Spironolactone 25 mg PO DAILY 12/11/15 11/29/21 Apixaban [Eliquis] 5 mg PO BID 05/29/18 11/29/21 ondansetron HCL [Zofran] 4 mg PO Q6H PRN #12 tablet 05/29/18 11/29/21 Metoprolol Succinate 12.5 mg PO BID 06/16/18 11/29/21 Brexpiprazole [Rexulti] 1 mg PO DAILY 11/19/21 11/29/21 Cyanocobalamin (Vitamin B-12) 500 mcg PO DAILY 11/19/21 11/29/21 [Vitamin B-12] Diclofenac Sodium [Voltaren 2 gm TOP DAILY PRN MDD 8 gm 11/19/21 11/29/21 Arthritis Pain] Escitalopram [Lexapro] 20 mg PO DAILY 11/19/21 11/29/21 Estradiol [Vagifem] 10 mcg VG 11/19/21 11/19/21 Fluticasone [Flonase] 1 sprays NANDINI BID 11/19/21 11/29/21 Folic Acid 2 mg PO DAILY 11/19/21 11/29/21 Hydrocortisone [Anusol-Hc] 1 supp [place] BID PRN 11/19/21 11/29/21 Hyoscyamine [Levsin] 0.375 mg PO BID 11/19/21 11/29/21 Magnesium Oxide 400 mg PO DAILY 11/19/21 11/29/21 Methotrexate [Methotrexate Sodium] 2.5 mg PO ONCE 11/19/21 11/29/21 Naloxone HCl Nasal [Narcan Nasal] 1 spray IN ONCE PRN 11/19/21 11/29/21 Potassium Chloride 10 meq PO DAILY 11/19/21 11/29/21 Pregabalin [Lyrica] 150 mg PO BID 11/19/21 11/29/21 Riboflavin (Vitamin B2) 400 mg PO DAILY 11/19/21 11/29/21 [Riboflavin] hydrOXYzine pamoate [Hydroxyzine 25 mg PO Q6HR PRN 11/19/21 11/29/21 Pamoate] - Allergies Allergies/Adverse Reactions: Allergies Allergy/AdvReac Type Severity Reaction Status Date / Time codeine Allergy Itching Verified 11/29/21 11:43 prochlorperazine AdvReac Intermediate Unknown Verified 11/29/21 11:43 [From Compazine] - Social History Does the pt smoke?: No Smoking Status: Never smoker Does the pt drink ETOH?: No Does the pt have substance abuse?: No - Immunizations Immunizations are current?: Yes - POLST Patient has POLST: No POLST Status: Full Code PD ED PE NORMAL - Vitals Vital signs reviewed: Yes - General General: Alert and oriented X 3, No acute distress - HEENT HEENT: Moist mucous membranes - Neck Neck: Supple, no meningeal sign - Cardiac Cardiac: RRR - Respiratory Respiratory: No respiratory distress, Clear bilaterally - Abdomen Abdomen: Soft, Non tender, Non distended - Derm Derm: Warm and dry - Extremities Extremities: No edema, No calf tenderness / cord - Neuro Neuro: Alert and oriented X 3 Results - Vitals Vitals: Vital Signs - 24 hr 11/29/21 11/29/21 11/29/21 11:44 11:46 12:37 Temperature 36.8 C 36.8 C Heart Rate 95 70 84 Respiratory 18 18 13 Rate Blood Pressure 119/75 115/75 99/74 O2 Saturation 97 99 97 Oxygen O2 Source Room air - EKG (time done) 1152 Rate: Rate (enter#) (76) Rhythm: Atrial fibrillation QRS: Normal Ischemia: Non specific changes PD MEDICAL DECISION MAKING - ED course Complexity details: reviewed results, re-evaluated patient, considered differential, d/w patient ED course: 66-year-old female with asymptomatic atrial fibrillation. Rate controlled here. No chest pain. No shortness of breath. No indication for emergent testing. She is at her normal baseline. No emergency medical condition. Patient counseled regarding signs and symptoms for which I believe and urgent re- evaluation would be necessary. Patient with good understanding of and agreement to plan and is comfortable going home at this time This document was made in part using voice recognition software. While efforts are made to proofread this document, sound alike and grammatical errors may occur. Departure - Departure Disposition: 01 Home, Self Care Clinical Impression: Atrial fibrillation Qualifiers: Atrial fibrillation type: unspecified Qualified Code(s): I48.91 - Unspecified atrial fibrillation Condition: Good Instructions: ED Afib Follow-Up: Your,doctor in 1 week [Other] Comments: Continue your current medications at home. Discuss any further medication changes with your doctor. Please return if you worsen. Your heart rate is down to the 70s and 80s in the emergency department today. Discharge Date/Time: 11/29/21 12:37
[2021-11-29 12:39] VITALS: BP 99/74
== END 2021-11-29 12:37 | disposition home or self-care (01) ==
LOC: ED 11:39
DX: I48.91 Unspecified atrial fibrillation (principal)
CPT/HCPCS: 93005; 99283